=== PATIENT | male | born 1965 | race American Indian/Alaskan Native ===

== ENCOUNTER 2018-08-30 20:21 | Emergency (ER) | payer OTHER, SELFPAY ==
--- NOTE | 2018-08-30 20:25 | ED_ITS ---
HPI - Extremity Problem <STEPHAN Becker - Last Filed: 08/30/18 21:54> General Chief complaint: Extremity Injury, Lower Stated complaint: water on the left knee Time Seen by Provider: 08/30/18 20:24 Source: patient Mode of arrival: ambulatory Limitations: no limitations History of Present Illness HPI Narrative: 52-year-old male with history of CHF as a part-time smoker here for complaint of pain to his left knee. Reports that he has had pain to the left knee over the last several days. He denies any trauma to the knee. He states that he was on his knees doing work for prolonged. And then the pain to his left knee started after that. Reports that he has had issues with this in the past he has actually had to have his left knee drained in the past. He denies any other concerns or complaints. Reports increased pain with ambulation. Related Data Previous Rx's Medication Instructions Recorded hydrocodone-acetaminophen [[place]] 1 tab PO Q6H PRN #5 tab 08/30/18 Allergies Allergy/AdvReac Type Severity Reaction Status Date / Time No Known Drug Allergies Allergy Verified 08/30/18 20:29 Review of Systems <STEPHAN Becker - Last Filed: 08/30/18 21:54> Constitutional Denies chills, Denies fever(s), Denies lethargy and Denies weakness Eyes Denies change in vision, Denies eye discharge, Denies irritation and Denies loss of vision ENT Ears, Nose, Mouth, and Throat: Denies change in voice, Denies neck pain and Denies sore throat Cardiovascular Denies chest pain, Denies irregular heart rhythm, Denies lightheadedness, Denies palpitations, Denies dyspnea, Denies dyspnea on exertion and Denies orthopnea Respiratory Denies cough, Denies dyspnea, Denies dyspnea on exertion and Denies wheezing Gastrointestinal Gastrointestinal: Denies abdominal pain, Denies change in bowel habits, Denies diarrhea, Denies nausea and Denies vomiting Genitourinary Denies hematuria, Denies flank pain, Denies urinary incontinence and Denies urinary urgency Musculoskeletal Denies neck pain Comments: Left knee pain Integumentary/Breasts Denies pruritus, Denies erythema, Denies rash and Denies wounds Neurologic Denies confusion, Denies loss of vision and Denies weakness Psychiatric Denies anxiety, Denies confusion, Denies depression, Denies homicidal ideation and Denies suicidal ideation Endocrine Denies palpitations Hematologic/Lymphatic Denies easy bruising Allergic/Immunologic Denies wheezing Exam <STEPHAN Becker - Last Filed: 08/30/18 21:54> Initial Vital Signs Initial Vital Signs: Vital Signs Temperature 98.2 F 08/30/18 20:30 Pulse Rate 100 H 08/30/18 20:30 Respiratory Rate 15 08/30/18 20:30 Blood Pressure 156/91 H 08/30/18 20:30 Pulse Oximetry 99 08/30/18 20:30 Const General: cooperative and well developed Nutritional Appearance: well nourished Orientation: alert, awake, oriented x3 and not confused HENMT Mouth: oral mucosae normal and moist mucous membranes Eyes General: appearance normal, both eyes and all related structures Eyelids: eyelids normal Conjunctivae: conjunctivae normal Sclera: sclerae normal Pupils: PERRL EOM: EOM intact bilaterally Neck Neck: JVD Lymphatic: lymphedema Resp Effort & Inspection: normal respiratory effort, able to speak in complete sentences, no respiratory distress and no use of accessory muscles Auscultation: clear to auscultation bilaterally, no rales, no rhonchi and no wheezes Cardio Rate: regular rate Rhythm: regular rhythm Heart Sounds: no click, no gallops, no murmurs and no rubs Pulses: normal peripheral pulses Skin General: no rashes or lesions noted, No jaundice and No petechiae Neuro General: alert, oriented x3, gait normal and no focal motor deficits Speech: speech normal Extrem Left lower extremity: knee Details: tenderness, swelling and knee ligament exam normal; no abrasions, no lacerations, no crepitus and no unusual warmth <Filomena Vernon DO - Last Filed: 08/31/18 02:59> Initial Vital Signs Initial Vital Signs: Vital Signs Temperature 98.2 F 08/30/18 20:30 Pulse Rate 100 H 08/30/18 20:30 Respiratory Rate 15 08/30/18 20:30 Blood Pressure 156/91 H 08/30/18 20:30 Pulse Oximetry 99 08/30/18 20:30 Course <STEPHAN Becker - Last Filed: 08/30/18 21:54> Orders Ordered: ED Orders 08/30/18 20:35 XR knee LT 3V Stat Discontinued Medications Hydrocodone Bitart/Acetaminophen ([place] 5/325) 1 tab PO NOW ONE Stop: 08/30/18 21:04 Last Admin: 08/30/18 21:05 Dose: 1 tab Hydrocodone Bitart/Acetaminophen (Vicodin Prepack) 1 bottle MISC SEEINSTR ONE Stop: 08/30/18 21:29 Last Admin: 08/30/18 21:35 Dose: 1 bottle Vital Signs - 8 hr 08/30/18 20:30 Temperature 98.2 F Pulse Rate 100 H Respiratory Rate 15 Blood Pressure 156/91 H Pulse Oximetry 99 <Filomena Vernon DO - Last Filed: 08/31/18 02:59> Orders Ordered: ED Orders 08/30/18 20:35 XR knee LT 3V Stat Discontinued Medications Hydrocodone Bitart/Acetaminophen ([place] 5/325) 1 tab PO NOW ONE Stop: 08/30/18 21:04 Last Admin: 08/30/18 21:05 Dose: 1 tab Hydrocodone Bitart/Acetaminophen (Vicodin Prepack) 1 bottle MISC SEEINSTR ONE Stop: 08/30/18 21:29 Last Admin: 08/30/18 21:35 Dose: 1 bottle Vital Signs - 8 hr 08/30/18 20:30 Temperature 98.2 F Pulse Rate 100 H Respiratory Rate 15 Blood Pressure 156/91 H Pulse Oximetry 99 MDM - Extremity (Nontraumatic) <STEPHAN Becker - Last Filed: 08/30/18 21:54> Imaging Data knee: Radiologist's impression: [place] [id number] XRay Report Signed Patient: Javier Lee MR#: [id number] : 1965 Acct:[id number] Age/Sex: 52 / M Date of Service: 08/30/18 Loc: ED Accession Number: [id number] Procedure: XR knee LT 3V Ordering Provider: Nacho Quezada PROCEDURE: XR KNEE LT 3V INDICATIONS: Pain slight swelling to left knee TECHNIQUE: 3 views of the knee were acquired. COMPARISON: None. FINDINGS: Bones: No fractures or dislocations. No suspicious bony lesions. Soft tissues: No joint effusion. No suspicious soft tissue calcifications. IMPRESSION: No acute fracture. No osseous lesion. If clinical suspicion and/or symptoms persist, further assessment with repeat plainfilms, or advanced imaging (e.g., CT, MRI, or bone scan) may be helpful for further assessment. Dictated by: Gabby Cervantes M.D. on 08/30/2018 at 21:11 Approved by: Gabby Cervantes M.D. on 08/30/2018 at 21:12 [facility] Narrative Medical decision making narrative: X-ray of the left knee was obtained was negative for any acute fractures or findings. Patient is ambulatory in the emergency room. [id number] ibuprofen as needed for any discomfort. He has been given small amount of [place] for breakthrough pain. He is referred to Orthopedics for further evaluation and if continued pain advanced imaging. For any worsening symptoms return emergency room. Discharge Plan Departure Patient Disposition: Home Clinical Impression: Acute pain of left knee Discharge Date/Time: 08/30/18 21:40 Interventions: ED Discharge Assessment Last Done: 08/30/18 21:40 Instructions: DI for Knee Pain Activity Restrictions/Additional Instructions: X-ray the left knee was obtained was negative for any acute findings. Use over- the-counter ibuprofen as needed for any discomfort. Rest area, follow up with Orthopedics. Call the number a number provided schedule follow-up appointment. Small amount of [place] is prescribed for breakthrough pain and not covered by ibuprofen use as directed. No driving while on the [place]. For any worsening symptoms return to the emergency room. Prescriptions: New hydrocodone-acetaminophen [[place]] 5-325 mg tablet 1 tab PO Q6H PRN (Reason: pain) Qty: 5 RF: 0 Referrals: Jennifer Perrin MD [Physician] - <Filomena Vernon DO - Last Filed: 08/31/18 02:59> Cosign ED Attending Shoshanaature Attestation: I was immediately available in the department for consultation. Documentation has been reviewed. I agree with assessment and plan.
[2018-08-30 20:30] VITALS: BP 156/91; PULSE 100; RESP 15; TEMP 36.8; O2SAT 99; BMI 36.0
--- NOTE | 2018-08-30 20:35 | DI.RAD.S_ITS ---
PROCEDURE: XR KNEE LT 3V INDICATIONS: Pain slight swelling to left knee TECHNIQUE: 3 views of the knee were acquired. COMPARISON: None. FINDINGS: Bones: No fractures or dislocations. No suspicious bony lesions. Soft tissues: No joint effusion. No suspicious soft tissue calcifications. IMPRESSION: No acute fracture. No osseous lesion. If clinical suspicion and/or symptoms persist, further assessment with repeat plainfilms, or advanced imaging (e.g., CT, MRI, or bone scan) may be helpful for further assessment. Dictated by: Gabby Cervantes M.D. on 08/30/2018 at 21:11 Approved by: Gabby Cervantes M.D. on 08/30/2018 at 21:12
[2018-08-30] MEDS: HYDROCODONE/ACET 5/325 TABLET 1 TAB PO (21:05)
[2018-08-30] MEDS: HYDROCODONE/ACET 5/325 PREPACK 1 BOTTLE MISC (21:35)
== END 2018-08-30 21:40 | disposition home or self-care (01) ==
PROVIDERS: Emergency Provider Nurse Practitioner Family
DX: M25.562 Pain in left knee (principal)
CPT/HCPCS: 73562; 99282; 99283

== ENCOUNTER → 2021-02-25 18:33 | Outpatient (CLI) | payer OTHER, SELFPAY ==
--- NOTE | 2021-02-25 | DI.RAD.S_ITS ---
PROCEDURE: XR FOOT RT MIN 3V INDICATIONS: Right Foot Injury TECHNIQUE: 3 views of the foot were acquired. COMPARISON: None. FINDINGS: Bones: No acute fracture identified. Diffuse hindfoot degenerative spurring and sclerosis. Plantar calcaneal spur. Chronic ossicle projects adjacent to the medial malleolar tip. Marginal lucency seen at the great toe interphalangeal joint. Soft tissues: Grossly unremarkable. IMPRESSION: No acute fracture seen. If the patient's pain or other symptoms persist, consider further evaluation with MRI Marginal lucency at the great toe interphalangeal joint suggestive of erosion although technically age indeterminate. Scattered chronic degenerative changes as above Dictated by: Priyank Watson M.D. on 02/26/2021 at 9:39 Approved by: Priyank Watson M.D. on 02/26/2021 at 9:41
== END ==
LOC: LAB 18:35 → RAD 18:56
PROVIDERS: PCP Family Medicine; Referring Provider Family Medicine; Visit Provider Family Medicine
DX: S99.921A Unspecified injury of right foot, initial encounter (principal); X58.XXXA Exposure to other specified factors, initial encounter
CPT/HCPCS: 73630

== ENCOUNTER 2021-06-10 00:54 | Observation (INO) | payer OTHER, SELFPAY ==
[2021-06-10] VITALS (21 sets, daily range): BP systolic 114–181; BP diastolic 64–80; PULSE 48–92; RESP 14–26; TEMP 35.4–36.8; O2SAT 95–100; BMI 33.0
--- NOTE | 2021-06-10 01:03 | DI.CT.S_ITS ---
PROCEDURE: CT HEAD/BRAIN WO CON INDICATIONS: dizzy, left side tingling, headache, on thinners TECHNIQUE: Noncontrast 4.5 mm thick angled axial sections acquired from the foramen magnum to the vertex, with coronal and sagittal reformats. For radiation dose reduction, the following was used: automated exposure control, adjustment of mA and/or kV according to patient size. COMPARISON: [facility], CT, BRAIN W/O CONTRAST, 06/19/2014, 22:23. FINDINGS: Image quality: Excellent. CSF spaces: Basal cisterns are patent. No extra-axial fluid collections. Ventricles are normal in size and shape. Brain: When compared with 06/19/[address], there is new hypoattenuation in the right parietal region, surrounding an area which demonstrated changes of encephalomalacia and gliosis on the 2014 exam. No mass effect or midline shift. No acute intracranial hemorrhage. Skull and face: Calvarium and visualized facial bones are intact, without suspicious lesions. Sinuses: Visualized sinuses and mastoids are clear. 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 Findings are concerning for new ischemia, although this may be remote or subacute. Given the left-sided sensory symptoms, however there is concern for acute ischemia. MRI brain with and without IV contrast recommended for further evaluation. Dictated by: Vinh Navas M.D. on 06/10/2021 at 1:26 Approved by: Vinh Navas M.D. on 06/10/2021 at 1:31
--- NOTE | 2021-06-10 01:04 | DI.RAD.S_ITS ---
PROCEDURE: XR CHEST 1V INDICATIONS: weak, fatigued, lightheaded TECHNIQUE: One view of the chest was acquired. COMPARISON: [facility], CR, XR CHEST 1 VIEW, 05/27/2021, 18:59. FINDINGS: Surgical changes and devices: Left chest wall cardiac pacing device as seen on prior study. Lungs and pleura: Lungs are clear. No pleural effusions or pneumothorax. Mediastinum: Mediastinal contours appear normal. Heart size is normal. Bones and chest wall: No suspicious bony lesions. Overlying soft tissues appear unremarkable. IMPRESSION: No acute cardiopulmonary process demonstrated radiographically. Dictated by: Vinh Navas M.D. on 06/10/2021 at 1:24 Approved by: Vinh Navas M.D. on 06/10/2021 at 1:24
--- NOTE | 2021-06-10 01:15 | ED.WEAKNESS ---
HPI - Weakness General Chief complaint: Neuro Symptoms/Deficit Stated complaint: tingling all over, has cardiac issues Time Seen by Provider: 06/10/21 00:57 History of Present Illness HPI Narrative: 55-year-old male nonsmoker with cardiac history including atrial fibrillation, hypertension, hyperlipidemia with a pacemaker and defibrillator presents with a chief complaint of feeling ill for the whole day. He states that he has a posterior headache that makes his brain feels scrambled. He feels lightheaded and dizzy and complains that his extremities are numb and tingling, the left greater than right. He states his symptoms were present upon waking yesterday at [id number] and he was last normal the night before. He is not activated as a code stroke or CODE IR. He denies any recent falls or injuries. He has had no fever or chills. He denies any chest pains or shortness of breath. He denies any defibrillator discharges. He denies any change in medications or diet. Additionally he states his speech feels difficult. He was most recently admitted a week or so ago as [facility] for similar circumstances. Related Data Previous Rx's Medication Instructions Recorded hydrocodone 5 mg-acetaminophen 325 1 tab PO Q6H PRN #5 tab 08/30/18 mg tablet ([place]) Allergies Allergy/AdvReac Type Severity Reaction Status Date / Time No Known Drug Allergies Allergy Verified 08/30/18 20:29 Review of Systems Review of Systems Narrative: GENERAL: See HPI. HEENT: Denies sinus pain, ear pain, sore throat, difficulty swallowing, dizziness. RESPIRATORY: Denies dyspnea, cough, wheezing, hemoptysis, sputum. CARDIOVASCULAR: Denies chest pain, palpitations, orthopnea, edema, GASTROINTESTINAL: Denies nausea, vomiting, abdominal pain, diarrhea, constipation, melena. : Denies dysuria, frequency, incontinence, hematuria, urinary retention. MUSCULOSKELETAL: See HPI SKIN: Denies rash, skin lesions, or other NEUROLOGIC: see HPI. PSYCHIATRIC: No concerning psychosocial issues. 12 point review of systems is negative except for those stated above Patient History Social History Smoking Status: Former smoker Exam Narrative Exam Narrative: GENERAL: [55 year old patient appears stated age. Well-developed patient, in mild distress. Flat affect, slow, purposeful speech HEAD: Atraumatic. Normocephalic. EYES: Pupils equal round and reactive. Extraocular motions intact. No scleral icterus. No injection or drainage. ENT: Nose without bleeding, purulent drainage. Throat without erythema, tonsillar hypertrophy or exudate. Airway patent. NECK: Trachea midline. Non tender CARDIOVASCULAR: Regular rate and rhythm without murmurs, gallops, or rubs. RESPIRATORY: Clear to auscultation. Breath sounds equal bilaterally. No wheezes, rales, or rhonchi. GASTROINTESTINAL: Abdomen soft, non-tender, nondistended. EXTREMITIES: No edema or joint tenderness. BACK: Nontender without deformity or crepitance. No flank tenderness. NEURO: AOx3. SKIN: No rash or erythema of visible areas NIH Stroke Scale 1a. LOC: Patient is alert and keenly responsive (0) 1b. LOC Questions: Patient answers both LOC questions accurately (0) 1c. LOC Commands: Patient performs both tasks correctly (0) 2. Best Gaze: Normal (0) 3. Visual: No visual loss (0) 4. Facial palsy: Normal symmetrical movements (0) 5. Motor arm: No drift (0) 6. Motor leg: No drift (0) 7. Limb ataxia: Absent (0) 8. Sensory: Normal (0) 9. Best language: No aphasia; normal (0) 10. Dysarthria: Normal (0) 11. Extinction and inattention: No abnormality (0) NIHSS: 0 Initial Vital Signs Initial Vital Signs: Vital Signs Pulse Rate 48 L 06/10/21 01:00 Blood Pressure 181/80 H 06/10/21 01:00 Pulse Oximetry 99 06/10/21 01:00 Scores NIH Stroke Scale Level of Conciousness: Alert, keenly responsive Ask month/age: Answers both questions correctly. Open/close eyes, close hand: Performs both tasks correctly Best gaze horizontal: Normal Visual garcia: No visual loss Facial palsy: Normal symetrical movement Left arm drift: Drifts down, not to bed Right arm drift: No drift for full 10 sec Left leg drift: No drift for full 5 sec Right leg drift: No drift for full 5 sec Limb ataxia: Present in one limb Sensory on face/arms/legs: Normal, no sensory loss Best language: No aphasia, normal Dysarthria: Mild to mod,some slurring Extinction or inattention: No abnormality Total NIH Stroke scale score: 3 Course Orders Ordered: ED Orders 06/10/21 EKG-12 Lead Stat 06/10/21 01:03 CT head/brain wo con Stat 06/10/21 01:04 XR chest 1V Stat 06/10/21 01:10 Complete Blood Count AUTO DIFF Stat Comprehensive Metabolic Panel Stat Magnesium Stat NT-proBNP (BNP-Adult 18+) Stat Troponin & CK Cardiac Panel Stat 06/10/21 01:11 COVID19 - ADMIT (PROOF TECHNICIAN swab/PCR) Stat 06/10/21 02:00 CT angio head and neck Stat Vital Signs Vital signs: Vital Signs - 8 hr 06/10/21 01:00 06/10/21 01:13 06/10/21 01:21 Temperature 98.3 F Pulse Rate 48 L 91 H 73 Respiratory Rate 17 23 Blood Pressure 181/80 H 181/80 H 144/76 H Pulse Oximetry 99 100 99 06/10/21 01:30 06/10/21 02:01 Temperature Pulse Rate 72 70 Respiratory Rate 25 H 24 Blood Pressure 151/70 H 146/76 H Pulse Oximetry 98 99 MDM - Weakness Lab Data Result diagrams: 06/10/21 01:10 06/10/21 01:10 Labs: Lab Results 06/10/21 06/10/21 06/10/21 Range/Units 01:10 01:10 01:11 WBC 12.5 H (4.5-11.0) X10^3/uL RBC 5.56 (4.5-5.9) X10^6/uL Hgb 15.2 (13.5-17.5) g/dL Hct 47.0 (41-53) % MCV 84.4 (80-100) fL MCH 27.3 (26-34) PG MCHC 32.4 (30-36) % RDW 14.6 (11.6-14.8) % Plt Count 229 (150-400) X10^3/uL Neut % (Auto) 64.6 (50-75) % Lymph % (Auto) 21.5 L (25-40) % [place] % (Auto) 10.0 (3-14) % Eos % (Auto) 2.7 (2-4) % Baso % (Auto) 1.2 (0-2) % Neut # (Auto) 8100 H (2867-0175) /uL Lymph # (Auto) 2700 (9184-5115) /uL [place] # (Auto) 1200 H (0-900) /uL Eos # (Auto) 300 (0-450) /uL Baso # (Auto) 200 H (0-100) /uL Sodium 139 (137-145) mmol/L Potassium 4.4 (3.4-5.1) mmol/L Chloride 105 (98-107) mmol/L Carbon Dioxide 26 (22-32) mmol/L BUN 29 H (9-20) mg/dL Creatinine 1.25 (0.66-1.25) mg/dL Estimated GFR 59.5 L (>60) mL/min BUN/Creatinine Ratio 23.2 H (6-22) Glucose 108 H (70-100) mg/dL Calcium 9.2 (8.4-10.2) mg/dL Magnesium 2.1 (1.6-2.3) mg/dL Total Bilirubin 0.6 (0.2-1.3) mg/dL AST 25 (17-59) IU/L ALT 24 (<50) IU/L Alkaline Phosphatase 65 (38-126) U/L Total Creatine Kinase 60 (55-170) U/L CK-MB (CK-2) TNP CK-MB (CK-2) Rel Index TNP Troponin I < 0.012 (0.01-0.034) ng/mL NT-Pro-B Natriuret Pep 677 H (<125) pg/mL Total Protein 7.8 (6.3-8.2) g/dL Albumin 4.6 (3.5-5.0) g/dL Globulin 3.2 (1.7-4.1) g/dL Albumin/Globulin Ratio 1.4 (1.0-2.8) SARS-CoV-2 (PCR) Negative (Negative) Imaging Data CT scan - head: Radiologist Impression: Javier Lee??55??M??1965 ? Allergy/Adv: No Known Drug Allergies (More??) Close Head/Neck CTA 06/10/21 Chest X-Ray (Signed) Vinh Navas - 06/10/[address] (Signed) Vinh Navas - 06/10/21 Foot X-Ray (Signed) Priyank Watson - 02/25/21 Knee X-Ray (Signed) CervantesOscarchen - 08/30/18 [place] [id number] CT Scan Report Signed Patient: Javier Lee MR#: [id number] : 1965 Acct:[id number] Age/Sex: 55 / M Date of Service: 06/10/21 Loc: ED Accession Number: [id number] ?? Procedure: CT head/brain wo con Ordering Provider: Andrew Baker D.O. PROCEDURE:? CT HEAD/BRAIN WO CON ? INDICATIONS:? dizzy, left side tingling, headache, on thinners ? TECHNIQUE:? Noncontrast 4.5 mm thick angled axial sections acquired from the foramen magnum to the vertex, with coronal and sagittal reformats.? For radiation dose reduction, the following was used:? automated exposure control, adjustment of mA and/or kV according to patient size.? ? COMPARISON:? [facility], CT, BRAIN W/O CONTRAST, 06/19/2014, 22:23. ? FINDINGS:? Image quality:? Excellent.? ? CSF spaces:? Basal cisterns are patent.? No extra-axial fluid collections.? Ventricles are normal in size and shape.? ? Brain:? When compared with 06/19/[address], there is new hypoattenuation in the right parietal region, surrounding an area which demonstrated changes of encephalomalacia and gliosis on the 2013 exam.? No mass effect or midline shift.? No acute intracranial hemorrhage. ? Skull and face:? Calvarium and visualized facial bones are intact, without suspicious lesions.? ? Sinuses:? Visualized sinuses and mastoids are clear.? ? IMPRESSION:? 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 Findings are concerning for new ischemia, although this may be remote or subacute.? Given the left-sided sensory symptoms, however there is concern for acute ischemia.? MRI brain with and without IV contrast recommended for further evaluation. ? ? Dictated by: Vinh Navas M.D. on 06/10/2021 at 1:26 ? ? Approved by: Vinh Navas M.D. on 06/10/2021 at 1:31 ? CTA Head and Neck: Radiologist Impression: There are no significant findings ECG Data Interpretation: Atrial paced at, frequent PVCs, no obvious drop beats or other ectopy. No ST segmental elevation or depression. Discharge Plan Departure Patient Disposition: Admitted As Inpatient Clinical Impression: Cerebrovascular accident Admit Date/Time: 06/10/21 04:57
[2021-06-10 01:23] LABS: Add Manual Diff / Slide Review NO; Basophils Absolute Auto 200 /uL (0-100); Basophils Percent Auto 1.2 % (0-2); Eosinophils Absolute Auto 300 /uL (0-450); Eosinophils Percent Auto 2.7 % (2-4); Hemoglobin 15.2 g/dL (13.5-17.5); Lymphocytes Absolute Auto 2700 /uL (1100-4500); Lymphocytes Percent Auto 21.5 % (25-40); Mean Corpuscular HGB Conc 32.4 % (30-36); Mean Corpuscular Hemoglobin 27.3 PG (26-34); Mean Corpuscular Volume 84.4 fL (80-100); Monocytes Absolute Auto 1200 /uL (0-900); Neutrophils Absolute Auto 8100 /uL (1500-7000); Neutrophils Percent Auto 64.6 % (50-75); Platelet Count 229 X10^3/uL (150-400); Red Blood Cell Count 5.56 X10^6/uL (4.5-5.9); Red Cell Distribution Width 14.6 % (11.6-14.8); White Blood Cell Count 12.5 X10^3/uL (4.5-11.0)
[2021-06-10 01:28] LABS: Alanine Aminotransferase 24 IU/L (<50); Albumin 4.6 g/dL (3.5-5.0); Albumin Globulin Ratio 1.4 (1.0-2.8); Alkaline Phosphatase 65 U/L (38-126); Aspartate Aminotransferase 25 IU/L (17-59); BUN Creatinine Ratio 23.2 (6-22); Bilirubin Total 0.6 mg/dL (0.2-1.3); Blood Urea Nitrogen 29 mg/dL (9-20); Calcium 9.2 mg/dL (8.4-10.2); Carbon Dioxide 26 mmol/L (22-32); Chloride 105 mmol/L (98-107); Creatine Kinase 60 U/L (55-170); Estimated Glomerular Filt Rate 59.5 mL/min (>60); Globulin 3.2 g/dL (1.7-4.1); Glucose 108 mg/dL (70-100); HEMOLYSIS < 15 (0-50); Magnesium 2.1 mg/dL (1.6-2.3); Potassium 4.4 mmol/L (3.4-5.1); Sodium 139 mmol/L (137-145); Total Protein 7.8 g/dL (6.3-8.2)
[2021-06-10 01:39] LABS: NT-proBNP (BNP-Adult 18+) 677 pg/mL (<125); Troponin I < 0.012 ng/mL (0.01-0.034)
--- NOTE | 2021-06-10 02:00 | DI.CT.S_ITS ---
PROCEDURE: CT ANGIO HEAD AND NECK INDICATIONS: sub acute CVA TECHNIQUE: After the administration of intravenous contrast, 1 mm thick sections acquired from the aortic arch through the [place] of [place]. Post-contrast 4.5 mm thick sections then re-acquired from the foramen magnum to the vertex. 3-dimensional jsihhkc-hpzsvergg-ofattsshby (MIP) and/or volume rendering reformats were acquired of the central intracranial vasculature and neck separately. COMPARISON: None. FINDINGS: Image quality: Excellent. BRAIN: CSF spaces: Ventricles are normal in size and shape. Basal cisterns are patent. No extra-axial fluid collections. Brain: Chronic right parietal infarct. Subtle hypodensity noted in the left parietal periventricular white matter which may represent subacute or chronic infarct. No midline shift. No intracranial bleeds or masses. Beaver-white matter interface appears intact. Skull and face: Calvarium and facial bones appear intact, without suspicious lesions. Orbits appear normal. Sinuses: Sinuses and mastoids are clear. HEAD CT ANGIOGRAPHY: Anterior circulation: Normal flow noted in the left internal carotid artery. There is very diminished flow in the intracranial segment of the right internal carotid artery secondary to proximal right internal carotid artery occlusion. The flow within the paired anterior cerebral arteries is normal and symmetric. The flow within the middle cerebral arteries is normal and symmetric. The anterior communicating artery is seen. No aneurysms are seen. Posterior circulation: Visualized portions of the vertebral arteries demonstrate normal caliber, and join to form a normal appearing basilar artery. Flow within the posterior cerebral arteries is normal and symmetric. No aneurysms are seen. NECK CT ANGIOGRAPHY: Carotid system: The great vessels demonstrate a conventional anatomy as they arise from the aortic arch. The origins of the common carotid arteries appear patent. The common carotid arteries demonstrate normal caliber and courses. Mild atherosclerotic irregularity noted in the origin of the left internal carotid artery which causes less than 50% stenosis of the vessel. There is complete occlusion of the origin of the right internal carotid artery which is reconstitution of flow in the distal cervical segment via collateral flow. Posterior circulation: Calcified and soft atherosclerotic plaque noted in the origin/proximal right vertebral artery which causes high-grade stenosis to near occlusion. There is flow in the right vertebral artery distal to the high-grade stenosis. Patient is right vertebral artery dominant. 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 Scattered, diffuse atherosclerotic irregularity noted in the cervical segments of the left vertebral artery which causes multifocal moderate and high-grade stenoses. Atherosclerotic calcifications noted in the proximal V4 segments of the vertebral arteries bilaterally which causes high-grade, short segment stenosis. Vertebral arteries join to form a normal appearing basilar artery. Soft tissues: Visualized neck soft tissues demonstrate no suspicious abnormalities. Left chest wall cardiac pacer noted. Bones: No suspicious bony lesions. Spine degenerative disc disease and facet arthropathy. Visualized cervical spine appears normally aligned. IMPRESSION: 1. Possible small subacute right parietal infarct. 2. Moderate-sized chronic right parietal infarct. 3. No intracranial hemorrhage. 4. 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 5. High-grade stenosis of the origin of the right vertebral artery. Patient is right vertebral artery dominant. 6. 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 7. Short segment, high-grade stenosis involving the V4 segments of the vertebral arteries bilaterally. Findings discussed with Dr. Lemus on June 10, 2021 at 9:27 a.m. Any quantitative measurements of stenosis were performed using NASCET criteria. Dictated by: Reyna Bass MD, PhD on 06/10/2021 at 8:37 Approved by: Reyna Bass MD, PhD on 06/10/2021 at 9:46
[2021-06-10 02:12] LABS: COVID19 - ADMIT (NP swab/PCR) Negative (Negative)
[2021-06-10 05:18] LABS: Cholesterol 114 mg/dL (140-199); HDL Cholesterol 38 mg/dL (40-60); LDL Cholesterol Calculated 37 mg/dL (<100); Triglycerides 193 mg/dL (35-150)
[2021-06-10 05:50] LABS: Thyroid Stimulating Hormone 1.87 uIU/mL (0.47-4.68)
--- NOTE | 2021-06-10 06:23 | PC.NURSE ---
Admit note: Received patient from ED via WC to room 228. Awake, alert, and cooperative. Ambulated from WC to Bed. NIH/Neuro check completed on arrival. NIH 4. Placed on Tele. Does not have an advanced directive, appointed maricel Morris as decision maker. Full code per his request. Oriented to room environment and plan of care. High Fall risk precautions in place. Swallow evaluation to follow. Call light within reach
--- NOTE | 2021-06-10 07:44 | DI.ECHO.S_ITS ---
[facility]---------+ [facility] +---------+ : : [address] [place] : : : : [id number] : : : : Phone: [phone]+ Echocardiogram Report + + :Name: CHELE DONALDSON Study Date: 06/10/2021 Height: 67 in : :[facility] ReadingLocation: Weight: 209 lb : : Gender: Male BSA: 2.1 m2 : :: 1965 Age: 55 yrs BP: 137/64 mmHg: :Reason For Study: CVA : : Performed By: JOHN BRAY : :Referring: JEB CASTELLON : + + Interpretation Summary Normal sinus rhythm with frequent PVC's. Normal LV size and borderline concentric LVH. There is global hypokinesis. EF is 30-35%. Severe RA enlargement; mild RV enlargement. No significant valvular abnormalities. No source of embolism found. In particular no evidence of PFO. Compared to prior study 04/26/2021 no significant changes have occurred. Procedure: A two-dimensional transthoracic echocardiogram with color flow and Doppler was performed. The study quality was technically adequate. Comparison is made with the echocardiogram of 04/26/2021. The heart rate ranged between 53 - 73 bpm during the study. Left Ventricle: The left ventricle is normal in size. There is mild concentric left ventricular hypertrophy. Left ventricular systolic function is moderately reduced. The ejection fraction is estimated to be 30-35%. There is a significant dyssynchronous contraction pattern, consistent with a conduction abnormality. There is moderate global hypokinesis of the left ventricle. Right Ventricle: There is a pacemaker lead in the right ventricle. The right ventricle is mildly dilated. The right ventricular systolic function is normal. Atria: The left atrial size is normal. There is a catheter/pacemaker lead seen in the right atrium. The right atrium is severely dilated. Two bubble study attempts on slides 88 and 89. No obvious shunting despite poor bubble quality and valsalva manuever. Doppler interrogation and injection of saline echo contrast shows no evidence for an interatrial shunt. The atrial septum is aneurysmal. Mitral Valve: There is trace mitral regurgitation. Aortic Valve: The aortic valve is trileaflet. The aortic valve opens well. The aortic valve is mildly calcified. There is mild aortic regurgitation. Tricuspid Valve: The tricuspid valve is normal. There is moderate tricuspid regurgitation. The right ventricular systolic pressure is estimated to be at least 27 mmHg based on an estimated right atrial pressure of 8 mm Hg. Pulmonic Valve: The pulmonic valve is not well seen, but is grossly normal. Great Vessels: The aortic root is normal size. The ascending aorta is normal in size. The aortic arch is normal in size. The IVC is dilated (diameter is greater than 2.1 cm) yet it collapses greater than 50% with a sniff. This suggests a right atrial pressure of 8 mm Hg. Pericardium/ Pleura There is no pericardial effusion. There is an anterior echo-free space consistent with a fat pad. There is no pleural effusion. MMode/2D Measurements & Calculations LVIDd: 5.0 cm LVOT diam: 2.0 cm LVIDs: 3.9 cm Ao root diam: 3.2 cm FS: 23.6 % asc Aorta Diam: 3.3 cm IVSd: 0.99 cm Ao Arch Diam (Prox Trans): 2.3 cm LVPWd: 1.1 cm LV smith. diameter/BSA (cm/m^2): 2.4 LV sys. diameter/BSA (cm/m^2): 1.9 LA A2 area: 21.9 cm2 RA long axis: 6.2 cm LA A4 area: 19.3 cm2 RA area: 32.4 cm2 LA length (vol): 5.6 cm RA vol: 144.8 ml LA vol: 64.3 ml RA : 70.3 ml/m2 LA vol index: 31.2 ml/m2 IVC diam: 2.5 cm TAPSE: 2.3 cm Doppler Measurements & Calculations Ao V2 max: 139.6 cm/sec LVOT Max Ronaldo: 81.9 cm/sec Ao V2 mean: 96.9 cm/sec LV V1 max P.7 mmHg Ao max P.8 mmHg LV V1 VTI: 18.8 cm Ao mean P.1 mmHg KANDACE(I,D): 2.4 cm2 Ao V2 VTI: 23.6 cm KANDACE(V,D): 1.8 cm2 sev ratio: 0.79 KANDACE indexed to BSA (cm^2/m^2): 1.2 MV E max ronaldo: 72.9 cm/sec TR max ronaldo: 217.2 cm/sec MV A max ronaldo: 119.0 cm/sec TR max P.9 mmHg MV E/A: 0.61 Med Peak E' Ronaldo: 4.6 cm/sec E/E' med: 15.7 Lat Peak E' Ronaldo: 7.8 cm/sec E/E' lat: 9.4 E/e' average: 12.5 MV dec time: 0.31 sec SV(IDALIA): 56.1 ml Electronically signed by: Deidre Richardson M.D. on Reading Physician:06/10/2021 04:53 PM
[2021-06-10 08:55] LABS: Hemoglobin A1C% w Est Avg Glu 6.3 % (4.0-6.0)
[2021-06-10] MEDS: METOPROLOL ER 50 MG TABLET 200 MG PO (09:18)
[2021-06-10] MEDS: APIXABAN 5 MG TABLET PO (09:18)
[2021-06-10] MEDS: AMLODIPINE 5 MG TABLET PO (09:18)
--- NOTE | 2021-06-10 09:18 | CM.DANOTE ---
DCP: Case received, EMR reviewed. Met briefly with patient. Introduced self and role. Was able to get some brief information from patient regarding his baseline activity status and living situation prior to admission. DCP assessment completed with information currently available. Patient is a 55 year old male who admitted early this morning to the care of the hospitalist team. PCP: Nat Bell, [facility]. Payer: Healthcare Management/[facility]. Patient came to the hospital via family vehicle secondary to having some tingling in his extremities. He is here to rule out CVA. Patient has history of a-fib, HTN, and has a pacemaker with defibrillator. Patient is to be having an MRI today. He was also having some difficulties with his speech. Met briefly with patient. He was starting to complain of chest pain, so the visit was short. Updated white board in his room with name of this digital sales planner. Asked him about mobility. He indicated that from the [facility], he was given a wheel-chair, walker, cane, and crutches. He indicated, he hasn't recently had to use them. Asked him if he lives alone, he indicated that he does, stated, his daughter is staying with him short term. Did not receive any further information. He gets his medical needs at the [facility]. He resides in [facility]. P: DCP to continue to follow, and will be available for any resources needed. He will be having an MRI, and will be working with the therapy team. Cheyenne Valencia RN/Parks Recreation Coordinator Discharge Planning/Care Management CM Discharge Assessment Start: 06/10/21 08:47 Freq: Status: Active Protocol: Document 06/10/21 08:49 (Rec: 06/10/21 08:51 [id number]) Discharge Planning Assessment Assigned Psych Np Cheyenne Valencia RN/Parks Recreation Coordinator Advance Directives? No History Provided By Patient,Medical Record Prior Living Arrangements House Household Members none Type of transporation used prior to Drives own vehicle admit Independent with ADL's Yes Is patient alert and oriented? Yes Caregiver for Another No Barriers to Discharge No Discharge Plan Home Whiteboard Updated in Patient Room with Yes name and ext. # of Psych Np Review Status In Process Next Review Type Continued Stay Review
[2021-06-10] MEDS: ISOSORBIDE MONONITRATE ER 30 MG TABLET 60 MG PO (09:20)
[2021-06-10] MEDS: ASPIRIN EC 81 MG TABLET PO (09:20)
[2021-06-10] MEDS: LORazepam 0.5 MG TABLET PO ×3 (09:22→23:55)
--- NOTE | 2021-06-10 09:28 | PC.NURSE ---
Addendum entered by Loyda Alicia R.N. 06/10/21 14:50: Pt reports that Chest pain is gone occasional transient SLATER, improved. No changes to vision. D Original Note: Patient is c/o chest pain and anxiety this Am, stat ekg ordered as well as troponins and ASA
[2021-06-10] MEDS: ASPIRIN 81 MG CHEW TAB 243 MG PO (10:01)
--- NOTE | 2021-06-10 10:42 | PT.IIE ---
Physical Therapy Inpatient Evaluation/Re-Eval M1 PT/OT-IP Prior Functional Status Start: 06/10/21 12:14 Freq: NEEDED Status: Active Protocol: Document 06/10/21 10:42 AB (Rec: 06/10/21 12:29 AB [email or web address]) Medical Review Prior Functional Status Medical History Reviewed Yes Communication able to make needs known Mobility and Gait pt stated that he is modified independent with all mobilities and ambulation without AD but has used a w/c and walker last month due to gout on his L foot Social History Household Members none Living Arrangements House Number of Floors (Floors) One Floor Number of Stairs To Enter/Railing? no steps to enter Home Environment High Toilet,Walk in Shower Home Equipment Shower Seat with Backrest,Grab Bars In Shower Additional Social History Comment pt stated that her daughter and niece comes in every now and then to assist him and occasionally stays with him to assist. pt has been sleeping on his recliner at home M2 PT-IP Current Condition Start: 06/10/21 12:14 Freq: NEEDED Status: Active Protocol: Document 06/10/21 10:42 AB (Rec: 06/10/21 12:29 AB [id number]) Physical Therapy Current Condition Current Condition Evaluation Date 06/10/21 Treatment Diagnosis CVA; difficulty in walking Onset Date 06/10/21 M3 PT-IP Subjective Start: 06/10/21 12:14 Freq: NEEDED Status: Active Protocol: Document 06/10/21 10:42 AB (Rec: 06/10/21 12:29 AB [email or web address]) Subjective Physical Therapy Visit Type Type Initial Evaluation Visit Start Time 10:42 Visit Stop Time 11:00 Total Visit Minutes 18 Number of IMAGE EDITOR Visits 0 Physical Therapy Visit Comments Patient Comments agreeable to do PT Therapy Pain Assessment Pain When Pain Assessed During Weight Bearing Location Left Foot Scale Used pain scale not stated; pt stated he has gout Pain Management Techniques Distraction,Modification of Treatment,Re-positioning M4 PT-IP Mobility and Gait Start: 06/10/21 12:14 Freq: NEEDED Status: Active Protocol: Document 06/10/21 10:42 AB (Rec: 06/10/21 12:29 AB [email or web address]) PT-Bed Mobility Assessment Supine to Sit Supine to Sit Standby Assistance Sit to Supine Sit to Supine Standby Assistance PT-Transfer Assessment Sit to and From Stand Sit to and from Stand Standby Assistance Equipment Transfer Assistive Device None,Gait Belt Orthotic/Prosthetic Devices or Brace: No Comments Mobility Comments pt stated that he has tingling on LUE but at times, the whole body. completed supine to sit SBA with HOB elevated. completed sit to stand sBA and ambulated in room without AD SBA to CGA. increase lateral trunk lean to the R and presents with antalgic gait. pt c/o L foot pain due to gout affecting gait. assessed safety with FWW SBA ~ 20 ft and also assessed ambulation 4WW and pt was able to ambulation in room SBA 20 ft. system support technician came in to do ECHO and pt returned back to bed. sit to supine SBA. positioned pt in bed. call light and table placed within reach. Gait Assessment Gait Gait Assistance Required: Standby Assistance,Contact Guard Assist Distance (Feet) 25 Able to Maintain Weight Bearing Status Yes During Gait Assistive Devices Assistive Device None,Gait Belt,Front Wheeled Walker,4 Wheeled Walker Orthotic/Prosthetic Devices or Brace: No Gait Deviations General Gait Pattern Antalgic,Decreased Stride Length,Decreased Feet Clearance Factors Limiting Gait Function Factors Limiting Gait Function Decreased Activity Tolerance, Decreased Strength,Poor Balance,Poor Safety Awareness PT-Balance Assessment Sitting Balance and Reactions Static Sitting Balance Ability Good Dynamic Sitting Balance Ability Good Standing Balance and Reactions Static Standing Balance Ability Good Dynamic Standing Balance Ability Fair Device Used without AD M5 PT-IP Objective Assessments Start: 06/10/21 12:14 Freq: NEEDED Status: Active Protocol: Document 06/10/21 10:42 AB (Rec: 06/10/21 12:29 AB [email or web address]) Orientation Orientation/Cognition Level of Alertness Alert Orientation Name,Place,Situation Language Function Ability No Deficits Noted Safety Awareness Understands Safety Issues Memory Description No Deficits Noted Gross Range of Motion Lower Extremity ROM Assessment Within Functional Limits Strength Lower Extremity Strength Hip 4-/5 Knee 4-/5 Sensation Assessment Sensation Sensation Description Tingling Comments Sensation Comments LUE Muscle Tone Muscle Tone WNL Yes M6 PT-IP Treatment Start: 06/10/21 12:14 Freq: NEEDED Status: Active Protocol: Document 06/10/21 10:42 AB (Rec: 06/10/21 12:29 AB [email or web address]) Physical Therapy Treatment Education Education Provided Safety M7 PT-IP Assessment and Plan Start: 06/10/21 12:14 Freq: NEEDED Status: Active Protocol: Document 06/10/21 10:42 AB (Rec: 06/10/21 12:29 AB [email or web address]) PT Summary Assessment and Plan Potential Rehabilitation Potential Good Status of Condition at Evaluation Stable Summary Impairments Pain,ROM,Strength,Balance, Coordination,Sensation,Tone, Cognition,Bed Mobility, Transfers,Gait,Activity Tolerance Assessment Summary pt requiring SBA to CGA with mobility and recommending use of 4WW upon d/c at this time for safety. pt will benefit from HHPT. pt stated that his daugther might be able to stay and assist him but is not definite. pt will need assistance at home and will require HH services. Goals Bed Mobility Goal Independent Transfer Goal Independent,Four Wheeled Walker Gait Goal Independent,Four Wheel Walker Gait Distance 150 Other Goals improve ambulation without AD 150 ft SBA Days to Meet Goals 5 Frequency of Treatment Frequency Of Treatment Once a Day Treatment Plan Physical Therapy Treatment Plan Bed Mobility Training,Transfer Training,Gait Training, Therapeutic Exercise,Balance Retraining,Discharge Planning, Neuromuscular Re-ed, Coordination Retraining Recommendations To Nursing Amount of Assist Needed 1 Person Assist Discharge Recommendations PT Discharge Recommendations Home with Assistance,Home Health Transportation Needs at Discharge Private Vehicle
[2021-06-10 12:03] LABS: Troponin I < 0.012 ng/mL (0.01-0.034)
--- NOTE | 2021-06-10 16:23 | OT.IP.EVAL ---
Occupational Therapy Inpatient Evaluation/Re-Eval M1 PT/OT-IP Prior Functional Status Start: 06/10/21 12:14 Freq: NEEDED Status: Active Protocol: Document 06/10/21 16:54 [facility] (Rec: 06/10/21 17:18 [facility] [id number]) Medical Review Prior Functional Status Medical History Reviewed Yes Communication able to make needs known Mobility and Gait pt stated that he is modified independent with all mobilities and ambulation without AD but has used a w/c and walker last month due to gout on his L foot Activities of Daily Living and IADL's Pt states was completely independent with all ADl, and IADl needs. Social History Household Members none Living Arrangements House Number of Floors (Floors) One Floor Number of Stairs To Enter/Railing? no steps to enter Home Environment High Toilet,Walk in Shower Home Equipment Four Wheel Walker,Straight Cane,Crutches,Manual Wheelchair,Shower Seat with Backrest,Grab Bars In Shower Additional Social History Comment pt stated that her daughter and niece comes in every now and then to assist him and occasionally stays with him to assist. pt has been sleeping on his recliner at home M2 OT-IP Current Condition Start: 06/10/21 16:54 Freq: Status: Active Protocol: Document 06/10/21 16:54 [facility] (Rec: 06/10/21 17:18 [facility] [id number]) Occupational Therapy Current Condition Current Condition Evaluation Date 06/10/21 Treatment Diagnosis CVA, decreased coordination Diagnosis Onset Date 06/10/21 M3 OT- IP Subjective and Pain Start: 06/10/21 16:54 Freq: Status: Active Protocol: Document 06/10/21 16:54 [facility] (Rec: 06/10/21 17:18 [facility] [id number]) OT- Subjective Occupational Therapy Visit Type Type Initial Evaluation Visit Start Time 15:32 Visit Stop Time 16:23 Total Visit Minutes 51 Occupational Therapy Visit Comments Patient Comments Pt initially wanting to sleep when OT came to see pt and then agreed to work with OT an hour later. PLASTIC PRINTER present for part of the session and PLASTIC PRINTER able to recommend to eat softer foods at this time. Patient/Caregiver Goals To go home. M4 OT- IP ADL's Start: 06/10/21 16:54 Freq: Status: Active Protocol: Document 06/10/21 16:54 [facility] (Rec: 06/10/21 17:18 [facility] [id number]) OT OJF-Pkeg-[facility] General Evaluation Self-Feeding Ability Standby Assistance Areas Needing Assistance Opening Containers Comments OT Self-Feeding Comments Pt able to feed himself from hand to mouth with spoon and applesauce. Pt states has trouble chewing as his neck hurts and have trouble to chew long enough while eating. OT ADL-Grooming Comments OT Grooming Comments Not performed. OT ADL-Oral Care Comments Oral Care Comments Not performed. OT ADL-Dressing General Eval Lower Body Dressing Ability Standby Assistance Comments OT Dressing Comments Pt able to don/doff his socks while seated. OT ADL-Toileting Comments OT Toileting Comments Pt not having to use the toilet at this time. OT ADL-Bathing Comments OT Bathing Comments Pt states too tired to shower at this time. M5 OT- IP IADL's Start: 06/10/21 16:54 Freq: Status: Active Protocol: Document 06/10/21 16:54 [facility] (Rec: 06/10/21 17:18 [facility] [id number]) OT-Instrumental Activities of Daily Living Home Safety Awareness Ability to Problem Solve Emergency Able to Problem Solve Situations Medication Management Medication Management Comments At this time due to pt's short term memory and not thinking well would benefit from assist especially with IADl needs. Money Management Money Management Comments Would benefit from supervision . Meal Preparation Meal Preparation Comments Pt would benefit from assist due to decreased dynamic balance due to left foot pain. Support Merchandiser Support Merchandiser Comments Pt would benefit from assist due to decreased dynamic balance due to left foot pain. Driving Driving Concerns Identified Regarding Safety Driving Comments Pt states due to his premature ventricular contractions has been scared to drive. M6 OT- IP Functional Cognition Start: 06/10/21 16:54 Freq: Status: Active Protocol: Document 06/10/21 16:54 [facility] (Rec: 06/10/21 17:18 [facility] [id number]) Cognitive Factors Limiting Selfcare Function Cognitive Ability Level of Alertness Alert Patient Orientation Name,Age,Birthday,Month,Date, Year,Day of Week,Place, Situation Attention Span Ability Capable of Focused Attention, Capable of Sustained Attention Ability to Follow Commands Able to Follow One Step Commands Memory Description Short Term Impaired Executive Function Ability Unable to Remember Details Cognitive Tests SLUMS Pt scored 21/30 which implies mild neurocognitive disorders. Normal score for pts level of education is 25/30. Pt not able to calculate 100-23 in his head or when written out, able to recall 2/5 objects after time passed, not able to states 4 digit number backwards, not able to draw the hour hands correctly on the clock after time given, and able to recall 3/4 questions right after paragraph read. Cognitive Comments Cognitive Assessment Comments Pt feel that he is thinking more slower and havin a hard time to remember. Pt scored 175 seconds on Chrisney making Part B and needing MAX vc to recall to switch from a number to letter to number to letter, etc... Pt's scored implies severe impairments for visual attention, task switching, speed of processing, mental flexibility, and executive functioning. Pt highly recommended not to drive . OT- Vision and Hearing OT- Hearing Assessment OT- Hearing Assessment WFL OT- Vision Assessment Visual Acuity Glasses For Reading Occular Pursuits WFL Visual Convergence Impaired Visual Luis WFL M7 OT- IP Mobility and Balance Start: 06/10/21 16:54 Freq: Status: Active Protocol: Document 06/10/21 16:54 [facility] (Rec: 06/10/21 17:18 [facility] [id number]) OT- Bed Mobility Assessment Rolling Type of Rolling Roll to Left Supine to Sit Supine to Sit Assist Independent Scooting Scooting to Edge of Bed Independent OT-Transfer Assessment Sit to and From Stand Sit to and from Stand Standby Assistance Transfers Transfer Ability Contact Guard Assistance Technique Transfer Destination Bed,Chair Devices Transfer Assistive Devices None,Gait Belt Comments Mobility Comments CGA for balance while walking without a device and tends to furniture cruise, especially as pt states his left foot hurts due to gout. At this time pt would be safer to use FWW. Pt has a 4ww at home. OT- Balance Assessment Sitting Balance and Reactions Static Sitting Balance Ability Normal Dynamic Sitting Balance Ability Good Standing Balance and Reactions Static Standing Balance Ability Good Dynamic Standing Balance Ability Fair M8 OT- IP Objective Assessments Start: 06/10/21 16:54 Freq: Status: Active Protocol: Document 06/10/21 16:54 [facility] (Rec: 06/10/21 17:18 [facility] [id number]) OT Gross Range of Motion Upper Extremity Range of Motion ROM Impairments Limted at end ROM OT Strength Comments Strength Comments RUE 4/5 , LUE 4-/5 OT- Coordination Assessment Upper Extremity Finger to Nose Test Within Functional Limits Comments Coordination Comments Pt needing slight increased time for left finger to nose and states harder to do on his left finger. 9 hole peg test Right hand 31seconds and left hand 43 seconds which is much slower than the 10th percentile for his age group. Pt staets that he has had trouble with his coordination for left hand for a long time. OT-Muscle Tone Assessment Muscle Tone WNL Yes OT Sensation Assessment Comments Summary Comments Intact for light touch. Pt having a harder time to do proprioception and kinesthesia for left hand. M9 OT- IP Assessment and Plan Start: 06/10/21 16:54 Freq: Status: Active Protocol: Document 06/10/21 16:54 [facility] (Rec: 06/10/21 17:18 [facility] [id number]) OT Summary Assessment and Plan Potential Rehabilitation Potential Good Analytic Complexity at Evaluation Moderate Summary OT Impairments Strength,Balance,Coordination, Functional Cognition, Functional Mobility,Dressing, Toileting,Bathing,Activity Tolerance Progress Towards Goals Progressing Toward Goals,Slow Progress due to Activity Tolerance,Slow Progress due to Cognition Assessment Summary Pt MOD complexity and main barriers are pain, decreased dynamic balance, activity tolerance, short term memory and executive problem solving, and would benefit form 24/7 available assist initially and home health when medically stable. Goals Self-Feeding Goal Independent Grooming Goal Independent Dressing Goal Independent Toileting Goal Independent Bathing Goal Independent Toilet Transfer Goal Independent Shower Transfer Goal Independent Days to Meet Goals 5 Frequency of Treatment Frequency Of Treatment Once a Day Treatment Plan OT Treatment Plan ADL Training,Functional Cognition Training,Functional Mobility,Patient/Family Education,Discharge Planning Other Treatment Recommendations and Next shower,ACL Treatment Focus Discharge Recommendations OT Discharge Recommendations Home with 24/7 Assist Available,Home Health Transportation Needs at Discharge Private Vehicle
--- NOTE | 2021-06-10 17:23 | ST.IPCSEOM ---
Visit Care Team Role Provider Type Nat Bell MD Primary Care Provider Non-Staff Specialty: Family Practice Address: [address] [place] [address], [id number] Email: Andrew Baker DO Emergency Provider Physician Referring Provider Specialty: Emergency Medicine Address: [address] [place] [address], [id number] Email: [email or web address] Loyda Bro [facility] Admit Provider Physician Attending Provider Specialty: Medical Address: [address] [place] [address], [phone] Email: Speech-Language Pathology Swallow Evaluation BUSINESS AGENT Clinical Swallow Evaluation Start: 06/10/21 16:21 Freq: Status: Active Protocol: Document 06/10/21 16:21 [facility] (Rec: 06/10/21 16:29 [facility] [id number]) Clinical Swallow Evaluation Session Time Visit Start Time 16:50 Visit Stop Time 17:15 Total Visit Minutes 25 Setting Assessment Location Acute Care Visit Type Note Type Initial evaluation Next Note Type Next Note Type Treatment Note Patient Information Identification Type Name,Wristband History Per medical history: 55-year- old male nonsmoker with cardiac history including atrial fibrillation, hypertension, hyperlipidemia with a pacemaker and defibrillator presents with a chief complaint of feeling ill for the whole day. He states that he has a posterior headache that makes his brain feels scrambled. He feels lightheaded and dizzy and complains that his extremities are numb and tingling, the left greater than right. He states his symptoms were present upon waking yesterday at [id number] and he was last normal the night before. He is not activated as a code stroke or CODE IR. He denies any recent falls or injuries. He has had no fever or chills . He denies any chest pains or shortness of breath. He denies any defibrillator discharges. He denies any change in medications or diet. Additionally he states his speech feels difficult. He was most recently admitted a week or so ago as [place] for similar circumstances. Subjective Observations Javier was sitting in a recliner awake, alert, and engaged in assessment with OT when clinician arrived. He responded to questions appropriately and demonstrated receptive and expressive language skills WNL. Speech was mildly slurred and gaze was downward during conversation with clinician, with ocassional glances up. Javier reported pain in the back of his neck and fatigue when chewing, though indicated no difficulty with swallowing liquids or food. Reported by Patient Location Neck Other Symptoms Other Comment Fatigue and pain in the back of his neck increases when he is chewing. Javier reported it takes him a long time to eat if he needs to chew food. Current Diet Regular,Thin liquids Baseline Feeding Method Independent in self-feeding Objective Assessment Mental Status Alert,Responsive,Cooperative Oral Integrity WFL Dentition Decay,Dentures or partials present,Upper dentures/ partials Lip Function Moderate impairment Observation of Lips at Rest Symmetrical Pucker Reduced range of motion, Reduced strength,Left sided weakness/drooping Alternating Pucker/Lip Retraction Reduced range of motion Tongue Function Mild impairment Observations of Tongue at Rest Within normal limits Tongue Protrusion Reduced range of motion, Reduced strength Tongue Lateralization Reduced range of motion, Reduced strength Jaw Function Within normal limits Observations of Jaw at Rest Within normal limits Jaw Opening Within normal limits Jaw Closing Within normal limits Hard/Soft Palate Function Within normal limits Observations of Hard/Soft Palate Within normal limits Nasality Within normal limits Comment Completed oral motor exam. Javier demonstrated left side weakness and reduced ROM for smile and pucker, though features were symmetrical at rest. Tongue protrusion, elevation, depression, and lateralization had a reduced ROM and strength. Movements appeared painful, though Javier reported no pain. Some tooth decay and partials noted in dentition and Javier reports fatigue when chewing. Reduced hyolaryngeal excursion and elevation for dry swallow and swallow with water in straw cup. Food and Liquid Trials Position During Assessment Upright (90 degrees),In chair Liquids Trialed Thin Solids Trialed Puree,Dysphagia Mechanical, Mechanical Soft,Regular Administration Type Tea spoon,Straw,Self-feeding Oral Impairment Within normal limits Oral Phase Comments Timely and efficient chewing observed, no anterior spillage and no residue following swallow. Javier reported the rach cracker was the most difficult to chew and pain in the back of his neck increased . He added that he does not chew as well after he starts getting tired, indicating chewing would decrease in efficiency and timeliness across a larger number of trials. Did not observe fatigue during session, though limited trials were completed . Pharyngeal Impairment Within normal limits Pharyngeal Phase Comments No difficulty with swallowing noted, though reduced hyolaryngeal elevation and excursion were noted. No signs or symptoms of aspiration were present or reported. Fatigue/Endurance Moderate fatigue Comment Unable to observe fatigue due to limited number of trials, though Javier reports fatigue that impacts his ability to chew food efficiently. Findings Swallowing Function Oral phase dysphagia Swallowing Function Comments Moderate oral phase dysphagia secondary to fatigue. Severity of Swallow Impairment Moderately impaired Contributing Factors to Swallow Reduced alertness or attention Impairment ,Reduced oral strength/ coordination/sensation, Mastication inefficiency Prognosis Fair Based on Cognitive status,Age,Duration of symptoms/severity Comment Javier presents with moderate oral phase dysphagia secondary to fatigue. He reports fatigue when he needs to chew across an entire meal and added that he becomes less efficient at chewing toward the end of the meal. Additionally, Javier reports pain in the back of his neck when chewing, likely due to effort required to keep his head upright. Reduced efficiency with chewing increases his risk for aspiration due to large bolus size if partially chewed. Recommend dysphagia mechanical diet to reduce need for chewing and swallow therapy to increase strength and ROM of oral structures for the purposes of swallow safety and efficient chewing. Impact on Safety and Functioning Risk for aspiration Recommendations Instrumental Assessment No Swallowing Treatment Yes Recommended Solids Dysphagia Mechanical Recommended Liquids Thin Safety Precautions/Swallowing Feed only when alert,Reduce Recommendations distractions,Remain upright ( 90 degrees) during all oral intake,Upright position at least 30 minutes after meals, Small bites and sips when eating,Slow rate; swallow between bites Medication Recommendations As Tolerated Discharge Recommendations Home Education Patient/Caregiver Education Described results of evaluation,Patient expressed understanding of evaluation, Patient expressed agreement with goals & treatment plans, Patient expressed understanding of feeding recommendations,Patient requires further education/ training Goals Short-term Goals 1. Javier will perform exercises to increase strength , coordination, and ROM of swallow musculature independently to reduce risk of aspiration and increase comfort with oral intake. Long-term Goals Javier will safely tolerate least restrictive diet to meet his nutrition and hydration needs.
--- NOTE | 2021-06-10 18:09 | PM.HP.1 ---
History of Present Illness History of Present Illness Date Patient Seen: 06/10/21 Time Patient Seen: 08:00 Chief complaint: tingling all over, has cardiac issues Narrative: Mr. Lee is a 55M with PMH CAD s/p stents, afib s/p ppm/aicd, CHFrEF, HTN, HL who presents with numbness. He states two days ago when he went to bed at night he felt normal. However he woke up and felt lightheaded, and numbness all over his body. However he says his symptoms are worse on the left side, left extremities. He did not have significant weakness, except mild weakness in his left hand. He had no speech difficulties. He had no fever/chills, no shortness of breath or cough, no chest pain. No defibrillator shocks. He has had multiple recent admissions to [facility] for chest discomfort and workup has not showed any acute AK. In the ED workup was done, vitals notable for elevated blood pressure. Labs notable for WBC 12.5, hgb 15.2, creatinine 1.25, trop negative, BNP 677. CT head showed new hypoattenuation surrounding infart in right parietal lobe concerning for ischemia. 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 He was given aspirin and admitted for further treatment. Family history: Brother -heart attack Patient History Family & Social History Social History: household members none Prior Living Arrangements House Safety & Behavioral: Feels Safe in Current Yes Environment Tobacco & Substance use: Smoking Status Former smoker alcohol intake former Substance Use Type former substance user Meds Home Medications and Allergies Home Medications Medication Instructions Recorded Confirmed Type amlodipine 5 mg tablet 5 mg PO DAILY 06/10/21 06/10/21 History apixaban 5 mg tablet (Eliquis) 5 mg PO BID 06/10/21 06/10/21 History atorvastatin 40 mg tablet 40 mg PO DAILY 06/10/21 06/10/21 History dapagliflozin 5 mg tablet (Farxiga) 5 mg PO DAILY 06/10/21 06/10/21 History isosorbide mononitrate 60 mg 60 mg PO QAM 06/10/21 06/10/21 History tablet,extended release 24 hr lisinopril 2.5 mg tablet 2.5 mg PO DAILY 06/10/21 06/10/21 History lorazepam 0.5 mg tablet 0.5 mg PO QID PRN 06/10/21 06/10/21 History metoprolol succinate 200 mg 200 mg PO DAILY 06/10/21 06/10/21 History tablet,extended release 24 hr Allergies Allergy/AdvReac Type Severity Reaction Status Date / Time No Known Drug Allergies Allergy Verified 08/30/18 20:29 Review of Systems Review of Systems Narrative: 14 systems reviewed and negative aside from HPI Exam Vital Signs (past 8 hours): - 06/10/21 12:54 Pulse Oximetry 96 Oxygen Delivery Method Room Air Oxygen Flow Rate 0 Narrative Exam Narrative: GEN: no acute distress HEENT: PERRL, moist mucous membranes NECK: no JVD< trachea midline CV: regular rate and rhythm, no murmurs PULM: clear bilaterally, no wheezes, rhonchi, rales ABD: soft, nontender, nondistended, no organomegaly, normal bowel sounds EXT: warm and well perfused with no edema NEURO: awake, alert and oriented, parasthesias on the left had, flat affect, slow speech, no slurred speech, normal upper and lower strength bilaterally PSYCH: pleasant, cooperative Objective Labs Result Diagrams: 06/10/21 01:10 06/10/21 01:10 Labs: Laboratory Results - last 24 hr 06/10/21 06/10/21 06/10/21 01:10 01:10 01:10 WBC 12.5 H RBC 5.56 Hgb 15.2 Hct 47.0 MCV 84.4 MCH 27.3 MCHC 32.4 RDW 14.6 Plt Count 229 Neut % (Auto) 64.6 Lymph % (Auto) 21.5 L [place] % (Auto) 10.0 Eos % (Auto) 2.7 Baso % (Auto) 1.2 Neut # (Auto) 8100 H Lymph # (Auto) 2700 [place] # (Auto) 1200 H Eos # (Auto) 300 Baso # (Auto) 200 H Sodium 139 Potassium 4.4 Chloride 105 Carbon Dioxide 26 BUN 29 H Creatinine 1.25 Estimated GFR 59.5 L BUN/Creatinine Ratio 23.2 H Glucose 108 H Hemoglobin A1c Calcium 9.2 Magnesium 2.1 Total Bilirubin 0.6 AST 25 ALT 24 Alkaline Phosphatase 65 Total Creatine Kinase 60 CK-MB (CK-2) TNP CK-MB (CK-2) Rel Index TNP Troponin I < 0.012 NT-Pro-B Natriuret Pep 677 H Total Protein 7.8 Albumin 4.6 Globulin 3.2 Albumin/Globulin Ratio 1.4 Triglycerides Cholesterol LDL Cholesterol, Calc HDL Cholesterol TSH 1.87 SARS-CoV-2 (PCR) 06/10/21 06/10/21 06/10/21 01:10 01:10 01:11 WBC RBC Hgb Hct MCV MCH MCHC RDW Plt Count Neut % (Auto) Lymph % (Auto) [place] % (Auto) Eos % (Auto) Baso % (Auto) Neut # (Auto) Lymph # (Auto) [place] # (Auto) Eos # (Auto) Baso # (Auto) Sodium Potassium Chloride Carbon Dioxide BUN Creatinine Estimated GFR BUN/Creatinine Ratio Glucose Hemoglobin A1c 6.3 H Calcium Magnesium Total Bilirubin AST ALT Alkaline Phosphatase Total Creatine Kinase CK-MB (CK-2) CK-MB (CK-2) Rel Index Troponin I NT-Pro-B Natriuret Pep Total Protein Albumin Globulin Albumin/Globulin Ratio Triglycerides 193 H Cholesterol 114 L LDL Cholesterol, Calc 37 HDL Cholesterol 38 L TSH SARS-CoV-2 (PCR) Negative 06/10/21 11:18 WBC RBC Hgb Hct MCV MCH MCHC RDW Plt Count Neut % (Auto) Lymph % (Auto) [place] % (Auto) Eos % (Auto) Baso % (Auto) Neut # (Auto) Lymph # (Auto) [place] # (Auto) Eos # (Auto) Baso # (Auto) Sodium Potassium Chloride Carbon Dioxide BUN Creatinine Estimated GFR BUN/Creatinine Ratio Glucose Hemoglobin A1c Calcium Magnesium Total Bilirubin AST ALT Alkaline Phosphatase Total Creatine Kinase CK-MB (CK-2) CK-MB (CK-2) Rel Index Troponin I < 0.012 NT-Pro-B Natriuret Pep Total Protein Albumin Globulin Albumin/Globulin Ratio Triglycerides Cholesterol LDL Cholesterol, Calc HDL Cholesterol TSH SARS-CoV-2 (PCR) Assessment & Plan Assessment & Plan narrative: [facility] 55[facility] with st[facility], CHFrEF, DM, HTN, HL who presents with left sided numbness found to have subacute stroke. 1. Subacute CVA -patient presented over 24 hours from last known well, outside window for TPA -CT head showed stroke, questionable if it is old or subacute -CTA showed bilateral vertebral artery stenosis, complete occlusion of right carotid with collateral and distal flow ---no evidence of acute thromboemboli -etiology of stroke possibly from afib, vs from stenotic disease -discussed case with neurology at [place] -will stop eliquis for one week -continue aspirin, for one week, then restart eliquis -continue statin, increase to max dose -check lipids, a1c -permissive hypertension -encourage diligent use of eliquis -PT/OT speech evaluation -given occlusion, no arterial disease is intervenable -unable to get MRI due to ppm/aicd 2. CHF with reduced EF, 30-35%, ischemic cardiomyopathy with CAD s/p MARIA INES to LCx -not currently in congestive heart failure -continue home medications, statin, lisinopril, metoprolol 3. Atrial fibrillation s/p AICD history of VF -hold eliquis as above -continue metoprolol as above 4. Type 2 Diabetes -hold farxiga for now -insuliln sliding scale while in hospital 5. HL -on statin as above 6. Hypertension -continue amlodipine as above 8. Anxiety -ordered for ativan -had chest pain with a nonischemic ekg and troponins negative x1, trending one more troponin, patient's symptoms improved with ativan CODE: Full Proxy: Kyarastarlacuba Morris, family member DVT ppx: tamir soni I have utilized all available immediate resources to obtain, update, or review the patient's current medications. Dispo: inpatient, with subacute cva Time Spent With Patient Critical Care time: I spent a total of [] minutes of critical care time on this patient's care today; this time is exclusive of procedural time. Quality MIPS - Admit I confirm the patient?s Advance Care Plan is present, Code status is documented, Surrogate decision maker is in patient?s record [If Yes, STOP here]: Yes
[2021-06-10] MEDS: ATORVASTATIN 20 MG TABLET 80 MG PO (21:23)
[2021-06-10 21:55] LABS: Troponin I < 0.012 ng/mL (0.01-0.034)
[2021-06-11] VITALS: BP 130/79; PULSE 70; RESP 18; TEMP 36.2; O2SAT 98
[2021-06-11] MEDS: ACETAMINOPHEN 325 MG TABLET 650 MG PO (01:22)
[2021-06-11 04:00] VITALS: O2SAT 98
[2021-06-11 05:31] LABS: Add Manual Diff / Slide Review NO; Basophils Absolute Auto 100 /uL (0-100); Basophils Percent Auto 1.3 % (0-2); Eosinophils Absolute Auto 300 /uL (0-450); Eosinophils Percent Auto 3.8 % (2-4); Hematocrit 46.9 % (41-53); Hemoglobin 15.2 g/dL (13.5-17.5); Lymphocytes Absolute Auto 2100 /uL (1100-4500); Lymphocytes Percent Auto 24.3 % (25-40); Mean Corpuscular HGB Conc 32.4 % (30-36); Mean Corpuscular Hemoglobin 27.3 PG (26-34); Mean Corpuscular Volume 84.4 fL (80-100); Monocytes Absolute Auto 700 /uL (0-900); Monocytes Percent Auto 8.1 % (3-14); Neutrophils Absolute Auto 5500 /uL (1500-7000); Neutrophils Percent Auto 62.5 % (50-75); Platelet Count 215 X10^3/uL (150-400); Red Blood Cell Count 5.56 X10^6/uL (4.5-5.9); Red Cell Distribution Width 14.8 % (11.6-14.8); White Blood Cell Count 8.8 X10^3/uL (4.5-11.0)
[2021-06-11 05:35] LABS: BUN Creatinine Ratio 25.2 (6-22); Blood Urea Nitrogen 27 mg/dL (9-20); Calcium 9.1 mg/dL (8.4-10.2); Carbon Dioxide 28 mmol/L (22-32); Chloride 107 mmol/L (98-107); Estimated Glomerular Filt Rate > 60.0 mL/min (>60); Glucose 101 mg/dL (70-100); HEMOLYSIS < 15 (0-50); Potassium 4.7 mmol/L (3.4-5.1); Sodium 139 mmol/L (137-145)
[2021-06-11] MEDS: LORazepam 0.5 MG TABLET PO (07:00)
[2021-06-11 08:00] VITALS: BP 144/80; PULSE 70; RESP 17; TEMP 36.5; O2SAT 98
[2021-06-11] MEDS: ENOXAPARIN 40 MG/0.4 ML SYRINGE SUBCUT (08:18)
[2021-06-11] MEDS: ASPIRIN EC 81 MG TABLET PO (08:18)
[2021-06-11] MEDS: ISOSORBIDE MONONITRATE ER 30 MG TABLET 60 MG PO (08:18)
[2021-06-11] MEDS: AMLODIPINE 5 MG TABLET PO (08:19)
[2021-06-11 08:21] VITALS: BP 134/81; PULSE 70
[2021-06-11] MEDS: lisinopriL 5 MG TABLET 2.5 MG PO (08:21)
[2021-06-11 08:22] VITALS: BP 134/81; PULSE 70
[2021-06-11] MEDS: METOPROLOL ER 50 MG TABLET 200 MG PO (08:22)
[2021-06-11] MEDS: INSULIN LISPRO 100 UNIT/ML 3ML VIAL SUBCUT (08:24)
--- NOTE | 2021-06-11 09:34 | PT.IPTN ---
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 Pt took one standing rest break due to increased pain in left foot/ankle. Pt with antalgic gait but steady with head turns with no LOB. Gait Assessment Gait Gait Assistance Required: Standby Assistance,1 Person Assist Distance (Feet) 150 Able to Maintain Weight Bearing Status Yes During Gait Assistive Devices Assistive Device None,Gait Belt Orthotic/Prosthetic Devices or Brace: No Gait Deviations General Gait Pattern Antalgic,Decreased Stride Length,Decreased Feet Clearance Factors Limiting Gait Function Factors Limiting Gait Function Decreased Activity Tolerance, Decreased Strength,Poor Balance PT-Balance Assessment Sitting Balance and Reactions Static Sitting Balance Ability Good Dynamic Sitting Balance Ability Good Standing Balance and Reactions Static Standing Balance Ability Good Dynamic Standing Balance Ability Fair Device Used without AD Comments Other Balance Tests/Deviations/Treatment balance WBS EO/EC : NBS EO/EC M5 PT-IP Objective Assessments Start: 06/10/21 12:14 Freq: NEEDED Status: Active Protocol: Document 10/07/21 10:42 AB (Rec: 06/10/21 12:29 AB [id number]) Orientation Orientation/Cognition Level of Alertness Alert Orientation Name,Place,Situation Language Function Ability No Deficits Noted Safety Awareness Understands Safety Issues Memory Description No Deficits Noted Gross Range of Motion Lower Extremity ROM Assessment Within Functional Limits Strength Lower Extremity Strength Hip 4-/5 Knee 4-/5 Sensation Assessment Sensation Sensation Description Tingling Comments Sensation Comments LUE Muscle Tone Muscle Tone WNL Yes M6 PT-IP Treatment Start: 06/10/21 12:14 Freq: NEEDED Status: Active Protocol: Document 06/11/21 09:16 CLB (Rec: 06/11/21 09:51 CLB [id number]) Physical Therapy Treatment Education Education Provided Safety M7 PT-IP Assessment and Plan Start: 06/10/21 12:14 Freq: NEEDED Status: Active Protocol: Document 06/11/21 09:16 CLB (Rec: 06/11/21 09:51 CLB [id number]) PT Summary Assessment and Plan Potential Rehabilitation Potential Good Status of Condition at Evaluation Stable Summary Impairments Pain,ROM,Strength,Balance, Coordination,Sensation,Tone, Cognition,Bed Mobility, Transfers,Gait,Activity Tolerance Assessment Summary Pt requiring SBA for sit-stand and gait. Pt able to ambulate w/o AD ~150ft SBA. Pt c/o ankle pain during gait. Pt plans to d/c home with assist from daughter. Pt will benefit from services at d/c. Goals Bed Mobility Goal Independent Transfer Goal Independent,Four Wheeled Walker Gait Goal Independent,Four Wheel Walker Gait Distance 150 Other Goals improve ambulation without AD 150 ft SBA Days to Meet Goals 5 Frequency of Treatment Frequency Of Treatment Once a Day Treatment Plan Physical Therapy Treatment Plan Bed Mobility Training,Transfer Training,Gait Training, Therapeutic Exercise,Balance Retraining,Discharge Planning, Neuromuscular Re-ed, Coordination Retraining Recommendations To Nursing Amount of Assist Needed 1 Person Assist Discharge Recommendations PT Discharge Recommendations Home with Assistance,Home Health Transportation Needs at Discharge Private Vehicle
--- NOTE | 2021-06-11 10:26 | CM.DPNOTE ---
Faxed referral packet to [facility] per Lili & received fax conf. Jonna Milan CM Asst.
--- NOTE | 2021-06-11 10:30 | OT.IP.TRT ---
Occupational Therapy Treatment Note M2 OT-IP Current Condition Start: 06/10/21 16:54 Freq: Status: Active Protocol: Document 06/10/21 16:54 [facility] (Rec: 06/10/21 17:18 [facility] [id number]) Occupational Therapy Current Condition Current Condition Evaluation Date 06/10/21 Treatment Diagnosis CVA, decreased coordination Diagnosis Onset Date 06/10/21 M3 OT- IP Subjective and Pain Start: 06/10/21 16:54 Freq: Status: Active Protocol: Document 06/11/21 10:50 [facility] (Rec: 06/11/21 11:01 [facility] [id number]) OT- Subjective Occupational Therapy Visit Type Type Treatment Note Visit Start Time 09:50 Visit Stop Time 10:30 Total Visit Minutes 40 Occupational Therapy Visit Comments Patient Comments Pt agreed to shower and redo [place] Making Part B. Patient/Caregiver Goals To go home. OT Pain Assessment Pain When Pain Assessed At Rest Pain Present Pain Present Denied Pain M4 OT- IP ADL's Start: 06/10/21 16:54 Freq: Status: Active Protocol: Document 06/11/21 10:50 [facility] (Rec: 06/11/21 11:01 [facility] [id number]) OT ADL-Dressing General Eval Upper Body Dressing Ability Independent Lower Body Dressing Ability Independent OT ADL-Toileting General Evaluation Toileting Ability Independent OT ADL-Bathing Bathing Type Bathing Type Shower General Evaluation Bathing Ability Independent M5 OT- IP IADL's Start: 06/10/21 16:54 Freq: Status: Active Protocol: Document 06/10/21 16:54 [facility] (Rec: 06/10/21 17:18 [facility] [id number]) OT-Instrumental Activities of Daily Living Home Safety Awareness Ability to Problem Solve Emergency Able to Problem Solve Situations Medication Management Medication Management Comments At this time due to pt's short term memory and not thinking well would benefit from assist especially with IADl needs. Money Management Money Management Comments Would benefit from supervision . Meal Preparation Meal Preparation Comments Pt would benefit from assist due to decreased dynamic balance due to left foot pain. School Child Care Attendant School Child Care Attendant Comments Pt would benefit from assist due to decreased dynamic balance due to left foot pain. Driving Driving Concerns Identified Regarding Safety Driving Comments Pt states due to his premature ventricular contractions has been scared to drive. M6 OT- IP Functional Cognition Start: 06/10/21 16:54 Freq: Status: Active Protocol: Document 06/11/21 10:50 [facility] (Rec: 06/11/21 11:01 [facility] [id number]) Cognitive Factors Limiting Selfcare Function Cognitive Ability Level of Alertness Alert Patient Orientation Name,Age,Birthday,Month,Date, Year,Day of Week,Place, Situation Attention Span Ability Capable of Focused Attention, Capable of Sustained Attention Ability to Follow Commands Able to Follow Multi-Step Commands Memory Description Short Term Impaired Cognitive Comments Cognitive Assessment Comments Pt reassessed [place] Making Part B and pt improved to 105 seconds, but needing HEDY vc to remember to switch from number to letter to number to letter etc... Pt score implies MOD impairment for visual attention, task switching, speed of processing, mental flexibility, and executive functioning. Still suggest for pt not to drive, pt states his family also does not want him to drive anymore. M7 OT- IP Mobility and Balance Start: 06/10/21 16:54 Freq: Status: Active Protocol: Document 06/11/21 10:50 [facility] (Rec: 06/11/21 11:01 [facility] [id number]) OT-Transfer Assessment Sit to and From Stand Sit to and from Stand Independent Transfers Transfer Ability Independent Technique Transfer Destination Chair,Shower Stall Devices Transfer Assistive Devices None Comments Mobility Comments Pt completely independent in the room without at device. OT- Balance Assessment Sitting Balance and Reactions Static Sitting Balance Ability Normal Dynamic Sitting Balance Ability Normal Standing Balance and Reactions Static Standing Balance Ability Good Dynamic Standing Balance Ability Fair M8 OT- IP Objective Assessments Start: 06/10/21 16:54 Freq: Status: Active Protocol: Document 06/10/21 16:54 [facility] (Rec: 06/10/21 17:18 [facility] [id number]) OT Gross Range of Motion Upper Extremity Range of Motion ROM Impairments Limted at end ROM OT Strength Comments Strength Comments RUE 4/5 , LUE 4-/5 OT- Coordination Assessment Upper Extremity Finger to Nose Test Within Functional Limits Comments Coordination Comments Pt needing slight increased time for left finger to nose and states harder to do on his left finger. 9 hole peg test Right hand 31 seconds and left hand 43 seconds which is much slower than the 10th percentile. OT-Muscle Tone Assessment Muscle Tone WNL Yes OT Sensation Assessment Comments Summary Comments Intact for light touch. Pt having a harder time to do proprioception and kinesthesia for left hand. M9 OT- IP Assessment and Plan Start: 06/10/21 16:54 Freq: Status: Active Protocol: Document 06/11/21 10:50 [facility] (Rec: 06/11/21 11:01 [facility] [id number]) OT Summary Assessment and Plan Potential Rehabilitation Potential Good Analytic Complexity at Evaluation Moderate Summary Progress Towards Goals Progressing Toward Goals Assessment Summary Pt now independent for ADl needs. Pt still have difficulty with short term memory and information sheet for memory given to pt. Pt shruthi still benefit from home health OT to work on FMS, executive functioning, IADl, and dynamic balance needs. Pt states his daughter will stay with him at discharge. Frequency of Treatment Frequency Of Treatment Discharge Treatment Plan OT Treatment Plan Patient/Family Education, Discharge Planning Discharge Recommendations OT Discharge Recommendations Home with Assistance,Home Health Transportation Needs at Discharge Private Vehicle
--- NOTE | 2021-06-11 11:22 | CM.DPC ---
DCP Discharge Home with HH Per MD, pt is medically stable for d/c home with HH and no identified barriers to discharge. MD signed F2F. ADOINS met bedside with pt and OT as OT preparing pt for showering prior to d/c and OT explained HH and pt agreeable to HH referral and no HH preference. SW called [facility] and confirmed they can review pt's insurance HMA to determine if pt has coverage for HH and CC Jonna kindly faxed initial referral along with F2F and MD orders but d/c summary not currently available. ADONIS met bedside with pt again and he is getting d/c instructions from RN and calling for his family to provide transport home and discussed that [facility] will call him after d/c to let him know his insurance coverage and set up first appointment in the home and will help make referral to another HH agency if they cannot accept his insurance. ADONIS provided [facility] brochure and pt appreciative and agreeable with d/c plan. Per PT/OT, pt made progress even today and if HH cannot accept his insurance they recommend that pt would be safe for d/c home with family assist and outpt. Plan: Patient to d/c home via family POV and new [facility] referral to follow after d/c. No further SW needs at this time. ANGELA Gnozalez
--- NOTE | 2021-06-11 11:34 | PC.NURSE ---
Discharge note: Patient discharged home with Home Health. Discussed importance of F/U with both Cardiology and PCP for Neurology referral. Education provided regarding dietary changes and lifestyle modifications. Educated regarding s/sx of stroke and importance of early response. Further more, discussed new medications and importance of the adherence. Home via private vehicle.
--- NOTE | 2021-06-11 12:28 | PM.DS.1 ---
History of Present Illness History of Present Illness Chief complaint: tingling all over, has cardiac issues Narrative: Mr. Lee is a 55M with PMH CAD s/p stents, afib s/p ppm/aicd, CHFrEF, HTN, HL who presents with numbness. He states two days ago when he went to bed at night he felt normal. However he woke up and felt lightheaded, and numbness all over his body. However he says his symptoms are worse on the left side, left extremities. He did not have significant weakness, except mild weakness in his left hand. He had no speech difficulties. He had no fever/chills, no shortness of breath or cough, no chest pain. No defibrillator shocks. He has had multiple recent admissions to [facility] for chest discomfort and workup has not showed any acute IA. In the ED workup was done, vitals notable for elevated blood pressure. Labs notable for WBC 12.5, hgb 15.2, creatinine 1.25, trop negative, BNP 677. CT head showed new hypoattenuation surrounding infart in right parietal lobe concerning for ischemia. 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 He was given aspirin and admitted for further treatment. Family history: Brother -heart attack Discharge Providers Provider Date of admission: 06/10/21 04:57 Discharge Date: 06/11/21 Primary care physician: Nat Bell MD Consults: 06/10/21 04:49 Consult to Physical Therapy Evaluate & Treat Comment: Stroke Physician Instructions: Evaluate and Treat Consult to Speech Therapy Evaluate & Treat Comment: stroke Physician Instructions: Evaluate and treat 06/10/21 07:43 Consult to Discharge Planning Routine Comment: Consult to Occupational Therapy Evaluate & Treat Comment: Physician Instructions: Evaluate and treat Consult to Physical Therapy Evaluate & Treat Comment: Physician Instructions: Evaluate and Treat Consult to Speech Therapy Evaluate & Treat Comment: Physician Instructions: Evaluate and treat 06/11/21 10:58 Consult to Home Health Routine Comment: CVA, AFIB, CHF Reason For Exam: Set up RN/PT/OT/ST for discharge home Discharge provider: Osmany Ayala MD Summary Hospital Course Discharge Diagnosis: 1. Acute CVA 2. CHF with reduced EF, 30-35%, ischemic cardiomyopathy with CAD s/p MARIA INES to LCx 3. Atrial fibrillation s/p AICD history of VF 4. Type 2 Diabetes 5. HL 6. Hypertension 7. Anxiety Hospital Course: Mr. Lee presented over 24 hours from last known well but was found to have a stroke. CT head initially read as possible old stroke with surrounding areas of possible new stroke. CT angio showed bilateral vertebral artery stenosis and complete occlusion of right carotid. Discussion was had with neurology who noted from their evaluation that stroke likely appeared acute. On review of CT angio there was no disease that was appropriate for intervention as collateral flow was present and arteries were already completely occluded. Neurology recommended holding eliquis for one week and then restarting, and in the meantime to give aspirin for the week that eliquis was held. Most likely etiology of stroke is embolic either from afib or from carotid disease. He will be referred to neurology. Of note patient did have chest pain. He had EKG with no acute ishcemia. He had negative troponins. His chest pain was improved with ativan, and he was admittedly quite anxious. He had a ECHO that showed an EF of 30-35%, MRI could not be done due to presence of AICD. Discharge time: 40 minutes Exam Vital Signs (past 8 hours): Oxygen Delivery Method Room Air Oxygen Flow Rate 0 Narrative Exam Narrative: GEN: no acute distress CV: regular rate and rhythm, no murmurs PULM: clear bilaterally, no wheezes, rhonchi, rales ABD: soft, nontender, nondistended, no organomegaly, normal bowel sounds EXT: warm and well perfused with no edema NEURO: awake, alert and oriented, parasthesias on the left had, flat affect, slow speech, no slurred speech, normal upper and lower strength bilaterally Objective Labs Result Diagrams: 06/11/21 05:01 06/11/21 05:01 [facility] Social History household members: none Smoking Status: Former smoker alcohol intake: former Discharge Plan Discharge Plan Patient Disposition: Home Provider Discharge Comment: Mr. Lee came to the hospital with left sided numbness. He was found to have a stroke. This is possibly from a clot. He should take aspirin for 7 days and then switch back to his eliquis. He should follow up closely with his PCP. He will be referred to neurology. Discharge orders & Medications Prescriptions: New atorvastatin 80 mg tablet 80 mg PO BEDTIME Qty: 30 RF: 0 aspirin 81 mg capsule 81 mg PO DAILY Qty: 7 RF: 0 Continued metoprolol succinate 200 mg Tablet Extended Release 24 Hr 200 mg PO DAILY RF: 0 amlodipine 5 mg Tablet 5 mg PO DAILY RF: 0 isosorbide mononitrate 60 mg Tablet Extended Release 24 Hr 60 mg PO QAM RF: 0 lorazepam 0.5 mg Tablet 0.5 mg PO QID PRN (Reason: Anxiety) RF: 0 lisinopril 2.5 mg Tablet 2.5 mg PO DAILY RF: 0 Farxiga 5 mg Tablet 5 mg PO DAILY RF: 0 Discontinued atorvastatin 40 mg Tablet 40 mg PO DAILY RF: 0 Eliquis 5 mg Tablet 5 mg PO BID RF: 0 Medication counseling provided by Pharmacist: Yes Follow up/Referrals: Nat Bell MD [Primary Care Provider] - Avis Cid MD [Non-Staff] - (follow up for stroke, likely embolic, while on eliquis) Diet/Activity/Treatments Diet: Carb-consistent/Diabetic, Low-fat, Low-sodium and Low-cholesterol Discharge Data Primary Care Provider: Nat Bell [facility] The patient has current or prior documentation of left ventricular ejection fraction (LVEF) less than 40%, or moderate or severely depressed left ventricular systolic function.: Yes A. The patient was prescribed or already taking an Angiotensin-Converting Enzyme (LIZZIE) Inhibitor, or Angiotensin Receptor Annel (ARB).: Yes B. The patient was prescribed or already taking a beta-annel. [If Yes to Both A & B, STOP here]: Yes
== END 2021-06-11 11:42 | disposition home or self-care (01) ==
LOC: ED 04:25 → ICU 08:35 → AC 06-11 08:22 → ICU 06-17 12:00
PROVIDERS: Internal Medicine; Admitting Provider Nurse Practitioner Family; Emergency Provider Emergency Medicine; PCP Family Medicine; Referring Provider Emergency Medicine; Visit Provider Nurse Practitioner Family
DX: I63.231 Cerebral infarction due to unspecified occlusion or stenosis of right carotid arteries (principal); I50.22 Chronic systolic (congestive) heart failure; I63.213 Cerebral infarction due to unspecified occlusion or stenosis of bilateral vertebral arteries; I48.91 Unspecified atrial fibrillation; R20.2 Paresthesia of skin; I11.0 Hypertensive heart disease with heart failure; I25.5 Ischemic cardiomyopathy; Z79.01 Long term (current) use of anticoagulants
CPT/HCPCS: 36415; 70450; 70496; 70498; 71045; 80048; 80053; 80061; 82550; 82962; 83036; 83735; 83880; 84443; 84484; 85025; 87635; 87797; 92610; 93005; 93306; 97116; 97161; 97166; 97530; 97535; 99285; C9803; G0378; J1650; J1815; Q9967

== ENCOUNTER 2021-06-23 03:26 | Emergency (ER) | payer OTHER, SELFPAY ==
[2021-06-10 05:58] VITALS: BMI 33.0
[2021-06-23] VITALS (8 sets, daily range): BP systolic 168; BP diastolic 84; PULSE 69–70; RESP 18–22; TEMP 36.9; O2SAT 94–100; BMI 32.5
--- NOTE | 2021-06-23 03:28 | ED_ITS ---
HPI - General Adult General Chief complaint: Neuro Symptoms/Deficit Stated complaint: numb on left side of body/head pain Time Seen by Provider: 06/23/21 03:28 History of Present Illness HPI narrative: 55-year-old gentleman with complicated cardiac medical history, pacer defibrillator in place paroxysmal atrial fibrillation anticoagulated on Eliquis, hypertension hyperlipidemia and diabetes presents complaining of chest wall pain that was shocking in nature approximately 12 hours prior to arrival. In 1-2 hours prior arrival he had similar shocking pain in his neck radiating over his entire body leaving him ?tingly all over? which precipitated his ER visit jun. He has similar presentation to [facility] on June 21, approximately 48 hours ago was admitted for observation and eventually discharged home after cardiac consultation. Pacemaker was interrogated and most likely explanation for repeated chest wall type muscle jerks/palpitation feeling was felt to be anxiety and he was discharged home with clonazepam. Complains of fatigue, diffuse weakness, leg pain, but has no dyspnea lower extremity edema, abdominal pain, nausea, diarrhea, dysuria, headache. Denies any recent falls or trauma. Patient has had multiple similar presentations to [facility] within the past 2 months.: -admitted from05/06-12/23 with electrolyte abnormalities. -admitted June 03 with cardiac stress test, noted to have frequent symptomatic PVCs and is scheduled to have an ablation at the end of this month. -admitted June 10 [facility] with a stroke and found to have complete occlusion of his right carotid artery with collateral and distal flow. He was discharged on June 11 and -admitted at [facility] on June 11 with similar symptoms [address] CT scan at that time did not show any hemorrhagic conversion of his stroke. -[facility] ED visit 06/18/21 similar symptoms -admit 06/20- [facility] similar symptoms to today including the jolting feeling starting in the left chest. -inpatient Cardiology consult 06/21 chest pain was reproducible with chest wall palpation, symptomatic PVCs have an ablation scheduled later this month. Chest pain and palpitations or felt unlikely to be cardiac given his recent extensive workups including low risk stress test, repeatedly normal troponins an atypical history. Recommended discharging with anti anxiety medication and PCP follow-up as well as continued apixaban for anticoagulation. Related Data Home Medications Medication Instructions Recorded Confirmed amlodipine 5 mg tablet 5 mg PO DAILY 06/10/21 06/10/21 dapagliflozin 5 mg tablet (Farxiga) 5 mg PO DAILY 06/10/21 06/10/21 isosorbide mononitrate 60 mg 60 mg PO QAM 06/10/21 06/10/21 tablet,extended release 24 hr lisinopril 2.5 mg tablet 2.5 mg PO DAILY 06/10/21 06/10/21 lorazepam 0.5 mg tablet 0.5 mg PO QID PRN 06/10/21 06/10/21 metoprolol succinate 200 mg 200 mg PO DAILY 06/10/21 06/10/21 tablet,extended release 24 hr Previous Rx's Medication Instructions Recorded aspirin 81 mg capsule 81 mg PO DAILY #7 cap 06/11/21 atorvastatin 80 mg tablet 80 mg PO BEDTIME #30 tab 06/11/21 Allergies Allergy/AdvReac Type Severity Reaction Status Date / Time Opioids - Morphine Analogues AdvReac Verified 06/23/21 03:46 Review of Systems Review of Systems Narrative: Remainder of complete review of systems is otherwise unremarkable except for that included in the HPI. Patient History Medical History (Updated 06/23/21 @ 04:43 by Mely Fish MD) Cerebrovascular accident Coronary artery disease History of alcohol use disorder Hyperlipidemia Hypertension ICD (implantable cardioverter-defibrillator) in place Paroxysmal atrial fibrillation Type 2 diabetes mellitus Social History household members: none Smoking Status: Former smoker alcohol intake: former Smoking Status: Former smoker Substance Use Type: former substance user Exam Narrative Exam Narrative: General: Disheveled but in no acute distress. Able to speak in full sentences with no dysphagia or dysarthria. Nourished well-developed HEENT: Moist mucous membranes, normal sclera with reactive pupils, Neck: No JVD, supple Respiratory: Lungs are clear to auscultation, no wheezing no rales no rhonchi. Full and symmetrical air movement Chest: Mild reproducible chest wall pain with palpation along the left anterior sternal border Cardiac: Regular rate and rhythm no murmurs no bruits Abdomen: Soft, nontender, good bowel tones, no flank pain Skin: Warm and dry, no rashes Neurologic: Grossly neurologically intact with no obvious asymmetries or abnormalities Extremities: No trauma, well perfused Psych: Cooperative, no eye contact, flat affect Initial Vital Signs Initial Vital Signs: Vital Signs Temperature 98.4 F 06/23/21 03:41 Pulse Rate 70 06/23/21 03:41 Respiratory Rate 18 06/23/21 03:41 Blood Pressure 168/84 H 06/23/21 03:41 Pulse Oximetry 100 06/23/21 03:41 Course Orders Ordered: ED Orders 06/23/21 EKG-12 Lead Stat 06/23/21 03:48 XR chest 1V Stat Complete Blood Count AUTO DIFF Stat Comprehensive Metabolic Panel Stat Ethanol (ETOH) Stat Troponin I Stat Vital Signs Vital signs: Vital Signs - 8 hr 06/23/21 03:41 Temperature 98.4 F Pulse Rate 70 Respiratory Rate 18 Blood Pressure 168/84 H Pulse Oximetry 100 Medical Decision Making Medical Records Medical records narrative: Nuclear medicine cardiac stress testing June 04, 2021 [facility] Diffuse hypokinesia. Mildly decreased global wall thickening there is apical thinning. Soft tissue attenuation artifact affects the inferior myocardium. No definite fixed or reversible perfusion deficit is seen. Impression no definite reversible perfusion defect to suggest ischemia. Left ventricular ejection fraction measures 38%. Global decreased wall thickening and hypokinesia. Lab Data Result diagrams: 06/23/21 03:55 06/23/21 03:55 Labs: Lab Results 06/23/21 06/23/21 Range/Units 03:55 03:55 WBC 9.4 (4.5-11.0) X10^3/uL RBC 5.30 (4.5-5.9) X10^6/uL Hgb 14.5 (13.5-17.5) g/dL Hct 44.2 (41-53) % MCV 83.4 (80-100) fL MCH 27.3 (26-34) PG MCHC 32.7 (30-36) % RDW 14.4 (11.6-14.8) % Plt Count 206 (150-400) X10^3/uL Neut % (Auto) 64.0 (50-75) % Lymph % (Auto) 23.0 L (25-40) % [place] % (Auto) 8.2 (3-14) % Eos % (Auto) 3.4 (2-4) % Baso % (Auto) 1.4 (0-2) % Neut # (Auto) 6000 (1715-9863) /uL Lymph # (Auto) 2200 (0255-3280) /uL [place] # (Auto) 800 (0-900) /uL Eos # (Auto) 300 (0-450) /uL Baso # (Auto) 100 (0-100) /uL Sodium 139 (137-145) mmol/L Potassium 4.7 (3.4-5.1) mmol/L Chloride 108 H (98-107) mmol/L Carbon Dioxide 23 (22-32) mmol/L BUN 24 H (9-20) mg/dL Creatinine 1.22 (0.66-1.25) mg/dL Estimated GFR > 60.0 (>60) mL/min BUN/Creatinine Ratio 19.7 (6-22) Glucose 100 (70-100) mg/dL Calcium 9.0 (8.4-10.2) mg/dL Total Bilirubin 0.5 (0.2-1.3) mg/dL AST 33 (17-59) IU/L ALT 33 (<50) IU/L Alkaline Phosphatase 60 (38-126) U/L Troponin I < 0.012 (0.01-0.034) ng/mL Total Protein 7.5 (6.3-8.2) g/dL Albumin 4.5 (3.5-5.0) g/dL Globulin 3.0 (1.7-4.1) g/dL Albumin/Globulin Ratio 1.5 (1.0-2.8) Ethyl Alcohol < 10 ( - 10) mg/dL Point of Care Testing Glucose POC 92 Point of care testing: Point of Care Testing Glucose POC 92 Imaging Data Chest x-ray: Radiologist's Impression: No acute cardiopulmonary abnormality Shaista German MD ECG Data Interpretation: Atrial paced rhythm at a rate of 70 No PVCs appreciated today No ischemic findings MDM Narrative Medical decision making narrative: 55-year-old gentleman with extensive cardiac history and multiple visits to [facility] and [facility] with similar complaints. He did have a small left parietal stroke. He has had recent nuc lear medicine stress testing that did not show new abnormalities. He has an ejection fraction in the 35-40% range with pacer defibrillator in place. Has frequent symptomatic PVCs that are not in evidence tonight for which he is scheduled to have a cardiac ablation later this month. At this time, his lab work is completely reassuring I do not have an explanation for the shocking type pain that he has complained of through multiple different admissions and emergency room visits. His defibrillator pacer was interrogated earlier today with no evidence of discharged to explain the shocks. He had was recently started on clonazepam with a concerned that anxiety was a significant component of his current complaints. At this time, despite the recurrent complaints I do not have more to add and I do not think that given his extensive workup and multiple hospitalizations within the last 6 weeks I do not believe He requires hospitalization or additional workup at this time. There is no evidence of recurrent or expanding stroke, pulmonary embolism, acute coronary syndrome, inappropriate discharge of his pacemaker or pacemaker dysfunction, acute pulmonary you had fractured or other life-threatening alternative diagnoses that might require further investigation with hospital stay. Findings reviewed with patient and he is discharged home. Discharge Plan Departure Patient Disposition: Home Clinical Impression: Paresthesia and pain of both upper extremities, Paresthesia of both lower extremities, Chest wall pain Activity Restrictions/Additional Instructions: Thank you for coming in today You have had a medically complex 2 months Today, I did not find any additional explanations for the tingling that you are having all over your body or the shocking sensation in her chest. With the extensive workup that you have had had in the last 2 months, I do not think that we need to repeat any of the stress testing, echocardiograms or additional serial blood work. Please continue all of your medications and keep your appointment with Dr. Jacobson at the end of this month to consider the cardiac ablation to reduce your frequent PVCs Please do make sure you are continuing to take the new prescription, clonazepam. This medicine helps with muscle spasm and it also helps with anxiety. Please keep your scheduled follow-up appointments with your primary care physician as well. I hope you feel better Prescriptions: No Action metoprolol succinate 200 mg Tablet Extended Release 24 Hr 200 mg PO DAILY RF: 0 amlodipine 5 mg Tablet 5 mg PO DAILY RF: 0 isosorbide mononitrate 60 mg Tablet Extended Release 24 Hr 60 mg PO QAM RF: 0 lorazepam 0.5 mg Tablet 0.5 mg PO QID PRN (Reason: Anxiety) RF: 0 lisinopril 2.5 mg Tablet 2.5 mg PO DAILY RF: 0 Farxiga 5 mg Tablet 5 mg PO DAILY RF: 0 atorvastatin 80 mg tablet 80 mg PO BEDTIME Qty: 30 RF: 0 aspirin 81 mg capsule 81 mg PO DAILY Qty: 7 RF: 0 Referrals: Nat Blel MD [Primary Care Provider] -
--- NOTE | 2021-06-23 03:48 | DI.RAD.S_ITS ---
PROCEDURE: XR CHEST 1V INDICATIONS: chest pain TECHNIQUE: One view of the chest was acquired. COMPARISON: [facility], CR, XR CHEST 1V, 06/10/2021, 1:00. FINDINGS: Surgical changes and devices: Left chest wall AICD is stable. Lungs and pleura: Lungs are clear. No pleural effusions or pneumothorax. Mediastinum: Mediastinal contours appear normal. Heart size is normal. Bones and chest wall: No suspicious bony lesions. Overlying soft tissues appear unremarkable. IMPRESSION: No acute cardiopulmonary disease process. Dictated by: Reyna Bass MD, PhD on 06/23/2021 at 9:36 Approved by: Reyna Bass MD, PhD on 06/23/2021 at 9:36
[2021-06-23 04:04] LABS: Add Manual Diff / Slide Review NO; Basophils Absolute Auto 100 /uL (0-100); Basophils Percent Auto 1.4 % (0-2); Eosinophils Absolute Auto 300 /uL (0-450); Eosinophils Percent Auto 3.4 % (2-4); Hematocrit 44.2 % (41-53); Hemoglobin 14.5 g/dL (13.5-17.5); Lymphocytes Absolute Auto 2200 /uL (1100-4500); Mean Corpuscular HGB Conc 32.7 % (30-36); Mean Corpuscular Hemoglobin 27.3 PG (26-34); Mean Corpuscular Volume 83.4 fL (80-100); Monocytes Absolute Auto 800 /uL (0-900); Monocytes Percent Auto 8.2 % (3-14); Neutrophils Absolute Auto 6000 /uL (1500-7000); Platelet Count 206 X10^3/uL (150-400); Red Cell Distribution Width 14.4 % (11.6-14.8); White Blood Cell Count 9.4 X10^3/uL (4.5-11.0)
[2021-06-23 04:12] LABS: Alanine Aminotransferase 33 IU/L (<50); Albumin 4.5 g/dL (3.5-5.0); Albumin Globulin Ratio 1.5 (1.0-2.8); Alkaline Phosphatase 60 U/L (38-126); Aspartate Aminotransferase 33 IU/L (17-59); BUN Creatinine Ratio 19.7 (6-22); Bilirubin Total 0.5 mg/dL (0.2-1.3); Blood Urea Nitrogen 24 mg/dL (9-20); Carbon Dioxide 23 mmol/L (22-32); Chloride 108 mmol/L (98-107); Estimated Glomerular Filt Rate > 60.0 mL/min (>60); Ethanol (ETOH) < 10 mg/dL; Glucose 100 mg/dL (70-100); HEMOLYSIS 19 (0-50); Potassium 4.7 mmol/L (3.4-5.1); Sodium 139 mmol/L (137-145); Total Protein 7.5 g/dL (6.3-8.2)
[2021-06-23 04:23] LABS: Troponin I < 0.012 ng/mL (0.01-0.034)
== END 2021-06-23 07:29 | disposition home or self-care (01) ==
PROVIDERS: Emergency Provider Emergency Medicine; PCP Family Medicine
DX: R07.89 Other chest pain (principal); R20.2 Paresthesia of skin; Z95.810 Presence of automatic (implantable) cardiac defibrillator
CPT/HCPCS: 36415; 71045; 80053; 80320; 82962; 84484; 85025; 93005; 93010; 99284